=== PATIENT | female | born 1935 | race Two or more races ===

== ENCOUNTER 2017-06-02 16:17 | Inpatient (IN) | payer MEDICARE, OTHER ==
[~2017-06-02] VITALS: Ht 162.6 cm; Wt 79.8 kg
--- NOTE | 2017-06-02 19:00 | NUR ---
ADMITTED AN 81 YEAR OLD FEMALE PATIENT FROM [facility] REPORT GIVEN BY JAIME WHO WAS ACCOMPANIED BY 2 EMT STAFF ON A GURNEY VIA AMBULANCE WITH NO SOB, DISTRESS OR DISCOMFORTS WITH VITAL SIGNS OF BP: 123/59, MO: 75, TEMP: 98.5, OXYGEN SAT OF 96% ON ROOM AIR. PATIENT WAS ADMITTED FOR RIGHT CVA WITH HISTORY OF SYNCOPE, DM 2, HTN, LEFT SIDED WEAKNESS. PATIENT'S FAMILY MEMBERS AT BEDSIDE. ALL NEEDS WERE ATTENDED AND ANTICIPATED. CALL LIGHT PLACED WITHIN REACH. SWAB OF THE NARES WERE DONE, SENT TO LAB ORDERED. ENDORSED TO INCOMING SHIFT.
[2017-06-02] MEDS ORDERED: RAMI10CA PO (19:05)
[2017-06-02] MEDS ORDERED: GLIP-217 PO (19:05)
[2017-06-02] MEDS ORDERED: ACET-73 PO (19:05)
[2017-06-02] MEDS ORDERED: POTA10TA15 PO (19:05)
[2017-06-02] MEDS ORDERED: FURO20TA4 PO (19:05)
[2017-06-02] MEDS ORDERED: MELO-107 PO (19:05)
[2017-06-02] MEDS ORDERED: ERGO500014 PO (19:05)
[2017-06-02] MEDS ORDERED: INSU300I SQ (19:05)
[2017-06-02] MEDS ORDERED: ROSU20TA30 PO (19:05)
[2017-06-02] MEDS ORDERED: CLON0.1T PO (19:05)
[2017-06-02] MEDS ORDERED: ISOS30TA6 PO (19:05)
[2017-06-02] MEDS ORDERED: CARV6.252 PO (19:05)
[2017-06-02] MEDS ORDERED: CLON0.3P TD (19:05)
[2017-06-02] MEDS ORDERED: SITA100T PO (19:05)
[2017-06-02] MEDS ORDERED: ZOLP10TA6 PO (19:05)
[2017-06-02] MEDS ORDERED: SITA1TAB2 PO (19:05)
[2017-06-02] MEDS ORDERED: ASPI81TA31 PO (19:05)
[2017-06-02] MEDS ORDERED: CLOP75TA33 PO (19:05)
[2017-06-02] MEDS ORDERED: MECL-102 PO (19:05)
[2017-06-02] MEDS ORDERED: NIFE90TA38 PO (19:05)
[2017-06-02] MEDS ORDERED: MEMA10TA PO (19:05)
[2017-06-02] MEDS ORDERED: Z GUARD REMEDY PASTE 57 GM TUBE TOP PRN (19:15)
[2017-06-02] MEDS ORDERED: MELA3TAB PO (19:59)
--- NOTE | 2017-06-02 20:00 | NUR ---
Received patient laying in bed, awake, not in any form of acute distress. Vital signs taken and recorded. Denies any pain or discomfort. Safety measures provided. Call light placed within reach. Assisted to his needs.
--- NOTE | 2017-06-02 20:20 | NUR ---
Dr. Washburn made aware of patient's admission, will also do med. reconciliation.
[2017-06-02] MEDS ORDERED: CLONIDINE HCL 0.1 MG TABLET PO PRN (21:15)
[2017-06-02] MEDS ORDERED: DEXTROSE 50% 50 ML DISP.SYRIN IV PRN (21:15)
[2017-06-02] MEDS ORDERED: MECLIZINE HCL 25 MG TABLET PO PRN (21:15)
[2017-06-02 21:18] VITALS: BP 120/59
[2017-06-02] MEDS: BLOOD SUGAR DIAGNOSTIC 1 EACH STRIP VI SCH (21:53)
[2017-06-02] MEDS: INSULIN REGULAR, HUMAN 300 UNITS/3 ML VIAL SQ PRN (21:58)
[2017-06-02] MEDS ORDERED: INSULIN REGULAR, HUMAN 300 UNIT/3 ML VIAL ONE (22:10)
[2017-06-03] MEDS: BLOOD SUGAR DIAGNOSTIC 1 EACH STRIP VI SCH ×3 (06:53→21:38)
[2017-06-03 07:02] VITALS: BP 150/64
--- NOTE | 2017-06-03 07:05 | NUR ---
report received from Jessie, 81 yr old female who was admitted on 06/02 for rehab s/p cva with left sided weakness. Addendum: 06/03/17 at 0806 by DEANNE COTTON RN Amended: Links added.
--- NOTE | 2017-06-03 07:07 | NUR ---
patient stable through shift. no acute distress noted. all needs attended to. all meds administered as ordered per md. vital signs stable through shift. safety measures implemented. will endorse to day shift nurse.
[2017-06-03] MEDS: INSULIN REGULAR, HUMAN 300 UNIT/3 ML VIAL SQ PRN ×2 (07:57→16:29)
--- NOTE | 2017-06-03 08:02 | NUR ---
evaristo 189, covered with 3 units denise CHAVEZ Addendum: 06/03/17 at 0802 by DEANNE COTTON RN Amended: Links added.
[2017-06-03] MEDS ORDERED: Medication Not On Formulary EA (Potassium Chloride 8 MEQ) PO SCH (09:00)
[2017-06-03] MEDS ORDERED: MEMANTINE HCL 10 MG TABLET PO SCH (09:00)
[2017-06-03] MEDS ORDERED: Medication Not On Formulary EA (Meloxicam 15 MG) PO SCH (09:00)
[2017-06-03] MEDS: CLOPIDOGREL 75 MG TABLET PO SCH (09:23)
[2017-06-03] MEDS: FUROSEMIDE 20 MG TABLET PO SCH (09:23)
[2017-06-03] MEDS: MEMANTINE HCL 5 MG TABLET PO SCH ×2 (09:23→21:33)
[2017-06-03] MEDS: MELOXICAM 7.5 MG TABLET PO SCH (09:23)
[2017-06-03] MEDS: NIFEdipine XL 90 MG TABSR PO SCH (09:24)
[2017-06-03] MEDS: ACETAMINOPHEN ES 500 MG TABLET PO PRN (09:25)
[2017-06-03] MEDS: POTASSIUM CHLORIDE 8 MEQ CAPSULE.SA PO SCH (09:25)
[2017-06-03] MEDS: ISOSORBIDE MONONITRATE 30 MG TAB.SR.24H PO SCH (09:25)
[2017-06-03] MEDS: ASPIRIN 81 MG TAB.CHEW PO SCH (09:26)
[2017-06-03] MEDS: CARVEDILOL 6.25 MG TABLET PO SCH ×2 (09:27→17:08)
--- NOTE | 2017-06-03 09:31 | NUR ---
. exercised with PT. medicated for pain Addendum: 06/03/17 at 0931 by DEANNE COTTON RN Amended: Links added.
--- NOTE | 2017-06-03 11:00 | NUR ---
family at the bedside. condition report given Addendum: 06/03/17 at 1225 by DEANNE COTTON RN Amended: Links added.
[2017-06-03] MEDS: CLONIDINE-TTS 3 PATCH TD SCH (11:12)
--- NOTE | 2017-06-03 17:15 | NUR ---
daughter here and had questions re PT, OT and ST. battery charger, Leila and Ann Marie PT talked to patient and daughter . also daughter had questions re Medications. I explained to her all the medications daughter said do not give any pain pills and sleeping pills Addendum: 06/03/17 at 1715 by DEANNE COTTON RN Amended: Links added.
--- NOTE | 2017-06-03 18:02 | NUR ---
accucheck 226, covered with 6 units humulin R sq Addendum: 06/03/17 at 1802 by DEANNE COTTON RN Amended: Links added.
[2017-06-03 19:00] VITALS: BP 131/62
--- NOTE | 2017-06-03 19:18 | NUR ---
Report given to LQlilyquinoRN Addendum: 06/03/17 at 1918 by DEANNE COTTON RN Amended: Links added.
--- NOTE | 2017-06-03 19:40 | NUR ---
Received patient laying in bed, awake, alert and not in respiratory distress. Safety measures provided. Bed in low position, side rails up x3. Placed call light in reach. will monitor the patient.
[2017-06-03] MEDS: MELATONIN 3 MG TABLET PO SCH (21:00)
[2017-06-03] MEDS: ATORVASTATIN 40 MG TABLET PO SCH (21:33)
[2017-06-03] MEDS: INSULIN REGULAR, HUMAN 300 UNITS/3 ML VIAL SQ PRN (21:41)
[2017-06-04] MEDS: BLOOD SUGAR DIAGNOSTIC 1 EACH STRIP VI SCH ×4 (06:59→21:20)
[2017-06-04 07:10] VITALS: BP 148/62
[2017-06-04 08:44] LABS: BASOPHILS % (AUTO) 0.4 % (0.0-2.0); EOSINOPHILS # (AUTO) 0.1 K/uL (0.0-0.7); EOSINOPHILS % (AUTO) 2.3 % (0.0-7.0); HEMATOCRIT 34.8 % (31.2-41.9); HEMOGLOBIN 11.6 g/dL (10.9-14.3); LYMPHOCYTES % (AUTO) 15.1 % (20.5-51.5); MEAN CORPUSCULAR HGB CONC 33 g/dL (32.3-35.6); MEAN CORPUSCULAR VOLUME 86.9 fL (75.5-95.3); MONOCYTES # (AUTO) 0.4 K/uL (2.0-10.0); MONOCYTES % (AUTO) 6.8 % (0.0-11.0); NEUTROPHILS # (AUTO) 4.9 K/uL (1.8-8.9); NEUTROPHILS % (AUTO) 75.4 % (38.5-71.5); PLATELET COUNT (AUTO) 276 K/uL (179-408); RED BLOOD CELL COUNT(AUTO) 4.01 MIL/uL (3.63-4.92); WHITE BLOOD COUNT (AUTO) 6.5 K/uL (3.8-11.8)
[2017-06-04 08:59] LABS: THYROID STIMULATING HORMONE 1.567 mIU/mL (0.358-3.740)
[2017-06-04] MEDS: ISOSORBIDE MONONITRATE 30 MG TAB.SR.24H PO SCH (09:27)
[2017-06-04] MEDS: FUROSEMIDE 20 MG TABLET PO SCH (09:27)
[2017-06-04] MEDS: MEMANTINE HCL 5 MG TABLET PO SCH ×2 (09:27→21:18)
[2017-06-04] MEDS: MELOXICAM 7.5 MG TABLET PO SCH (09:27)
[2017-06-04] MEDS: ASPIRIN 81 MG TAB.CHEW PO SCH (09:27)
[2017-06-04] MEDS: NIFEdipine XL 90 MG TABSR PO SCH (09:28)
[2017-06-04] MEDS: POTASSIUM CHLORIDE 8 MEQ CAPSULE.SA PO SCH (09:28)
[2017-06-04] MEDS: CARVEDILOL 6.25 MG TABLET PO SCH ×2 (09:28→17:26)
[2017-06-04] MEDS: CLOPIDOGREL 75 MG TABLET PO SCH (09:28)
[2017-06-04 09:30] LABS: ALANINE AMINOTRANSFERASE 28 U/L (14-59); ALKALINE PHOSPHATASE 66 U/L (50-136); ASPARTATE AMINOTRANSFERASE 30 U/L (15-37); BILIRUBIN,TOTAL 0.3 mg/dL (0.2-1.0); CARBON DIOXIDE 25 mmol/L (21-32); CHLORIDE 109 mmol/L (98-107); CHOLESTEROL 154 mg/dL (<200); CREATININE 1.7 mg/dL (0.6-1.3); GLUCOSE 232 mg/dL (74-106); HDL CHOLESTEROL 46 mg/dL (40-60); MAGNESIUM 2.1 mg/dL (1.8-2.4); PHOSPHOROUS 4.5 mg/dL (2.5-4.9); POTASSIUM 4.7 mmol/L (3.5-5.1); TOTAL PROTEIN, SERUM 6.4 g/dL (6.4-8.2); TRIGLYCERIDES 111 MG/DL (30-150); UREA NITROGEN, BLOOD 35 mg/dL (7-18)
[2017-06-04] MEDS: INSULIN REGULAR, HUMAN 300 UNIT/3 ML VIAL SQ PRN ×2 (11:56→17:24)
--- NOTE | 2017-06-04 19:40 | NUR ---
Patient laying in bed, awake, not in any form of acute distress. Vital signs taken and recorded. No s/s of any acute respiratory distress. Denies any pain or discomfort. Safety measures provided. Call light placed within reach. Will monitor the patient.
[2017-06-04 20:00] VITALS: BP 125/62
[2017-06-04] MEDS: MELATONIN 3 MG TABLET PO SCH (21:00)
[2017-06-04] MEDS: ATORVASTATIN 40 MG TABLET PO SCH (21:18)
[2017-06-04] MEDS: INSULIN REGULAR, HUMAN 300 UNITS/3 ML VIAL SQ PRN (21:25)
[2017-06-05] MEDS: BLOOD SUGAR DIAGNOSTIC 1 EACH STRIP VI SCH ×4 (06:54→20:56)
[2017-06-05 07:30] VITALS: BP 144/67
[2017-06-05 08:08] LABS: CARBON DIOXIDE 25 mmol/L (21-32); CHLORIDE 104 mmol/L (98-107); CREATININE 1.7 mg/dL (0.6-1.3); GLUCOSE 240 mg/dL (74-106); MAGNESIUM 1.9 mg/dL (1.8-2.4); PHOSPHOROUS 4.8 mg/dL (2.5-4.9); POTASSIUM 4.4 mmol/L (3.5-5.1); UREA NITROGEN, BLOOD 38 mg/dL (7-18)
[2017-06-05] MEDS: ASPIRIN 81 MG TAB.CHEW PO SCH (08:27)
[2017-06-05] MEDS: MEMANTINE HCL 5 MG TABLET PO SCH ×2 (08:27→20:46)
[2017-06-05] MEDS: POTASSIUM CHLORIDE 8 MEQ CAPSULE.SA PO SCH (08:30)
[2017-06-05] MEDS: CLOPIDOGREL 75 MG TABLET PO SCH (08:31)
[2017-06-05] MEDS: NIFEdipine XL 90 MG TABSR PO SCH (08:31)
[2017-06-05] MEDS: MELOXICAM 7.5 MG TABLET PO SCH (08:32)
[2017-06-05] MEDS: CARVEDILOL 6.25 MG TABLET PO SCH ×2 (08:33→18:00)
[2017-06-05] MEDS: FUROSEMIDE 20 MG TABLET PO SCH (08:44)
[2017-06-05] MEDS: ISOSORBIDE MONONITRATE 30 MG TAB.SR.24H PO SCH (08:45)
[2017-06-05] MEDS: CYANOCOBALAMIN 1000 MCG/ML VIAL IM SCH (08:45)
[2017-06-05 09:13] LABS: BASOPHILS % (AUTO) 0.3 % (0.0-2.0); EOSINOPHILS # (AUTO) 0.2 K/uL (0.0-0.7); EOSINOPHILS % (AUTO) 2.1 % (0.0-7.0); HEMATOCRIT 34.9 % (31.2-41.9); HEMOGLOBIN 11.7 g/dL (10.9-14.3); LYMPHOCYTES # (AUTO) 0.8 K/uL (20.0-40.0); LYMPHOCYTES % (AUTO) 9.9 % (20.5-51.5); MEAN CORPUSCULAR HEMOGLOBIN 29.1 uug (24.7-32.8); MEAN CORPUSCULAR HGB CONC 34 g/dL (32.3-35.6); MEAN CORPUSCULAR VOLUME 86.7 fL (75.5-95.3); MONOCYTES # (AUTO) 0.5 K/uL (2.0-10.0); MONOCYTES % (AUTO) 6.4 % (0.0-11.0); NEUTROPHILS # (AUTO) 6.9 K/uL (1.8-8.9); NEUTROPHILS % (AUTO) 81.3 % (38.5-71.5); PLATELET COUNT (AUTO) 264 K/uL (179-408); RED BLOOD CELL COUNT(AUTO) 4.02 MIL/uL (3.63-4.92)
[2017-06-05 09:14] LABS: WHITE BLOOD COUNT (AUTO) 8.5 K/uL (3.8-11.8)
[2017-06-05] MEDS: INSULIN REGULAR, HUMAN 300 UNIT/3 ML VIAL SQ PRN ×3 (12:09→20:55)
--- NOTE | 2017-06-05 12:31 | NUR ---
SBAR report received from shift mgr RN. Board updated. Pt assessed, awake, alert, and oriented. No c/o pain or discomfort. Pt compliant with all routine morning medications, taking pills whole. Bed in locked and lowest position with side rails up x2. All safety and comfort measures met. Pt complied with all scheduled therapies. Pt sitting up in chair for lunch with daughter at bedside currently. Pt reminded to utilize call light for any assistance needed. Personal items and call light within reach. Will continue to monitor.
--- NOTE | 2017-06-05 19:02 | NUR ---
Pt seen by MD, no new orders. Pt sitting comfortably with daughter at bedside. Held Coreg r/t decreased BP of 110/53. No c/o pain. Pt repositioned for comfort, clean and dry. Call light within reach. Will endorse to oncoming date night caregiver.
--- NOTE | 2017-06-05 19:30 | NUR ---
Patient received from day shift nurse. shift report given at bedside. patient is a/o x2-3 with no signs of pain, sob, or acute distress. vital signs stable at beginning of shift. pertinent assessment completed. bed in low position x2 side rails up. call light placed within reach of pt. will continue to monitor pt through shift.
[2017-06-05 20:25] VITALS: BP 129/51
[2017-06-05] MEDS: ATORVASTATIN 40 MG TABLET PO SCH (20:46)
--- NOTE | 2017-06-05 20:55 | NUR ---
Blood sugar checked at 217. administered 6 units of insulin per MD order & sliding scale. will continue to monitor pt through shift.
[2017-06-05] MEDS: MELATONIN 3 MG TABLET PO SCH (21:00)
--- NOTE | 2017-06-06 05:43 | NUR ---
patient slept well through the shift. no signs of pain, sob, or acute distress noted. vital signs stable through shift. patient used nectar-thick liquids for drinking. no s/s of aspiration. was able to make meds whole. diaper changed per soiling. all needs attended to. all meds administered as ordered. safety measures implemented. bed in low position x2 side rails up. call light within reach of pt. will endorse to day shift nurse.
[2017-06-06] MEDS: BLOOD SUGAR DIAGNOSTIC 1 EACH STRIP VI SCH ×4 (06:30→21:07)
[2017-06-06] MEDS: INSULIN REGULAR, HUMAN 300 UNIT/3 ML VIAL SQ PRN ×4 (06:31→21:07)
[2017-06-06 07:30] VITALS: BP 136/60
[2017-06-06] MEDS: MELOXICAM 7.5 MG TABLET PO SCH (08:23)
[2017-06-06] MEDS: NIFEdipine XL 90 MG TABSR PO SCH (08:24)
[2017-06-06] MEDS: CLOPIDOGREL 75 MG TABLET PO SCH (08:25)
[2017-06-06] MEDS: FUROSEMIDE 20 MG TABLET PO SCH (08:25)
[2017-06-06] MEDS: ASPIRIN 81 MG TAB.CHEW PO SCH (08:25)
[2017-06-06] MEDS: POTASSIUM CHLORIDE 8 MEQ CAPSULE.SA PO SCH (08:25)
[2017-06-06] MEDS: ISOSORBIDE MONONITRATE 30 MG TAB.SR.24H PO SCH (08:25)
[2017-06-06] MEDS: MEMANTINE HCL 5 MG TABLET PO SCH ×2 (08:25→20:57)
[2017-06-06] MEDS: CARVEDILOL 6.25 MG TABLET PO SCH ×2 (08:26→18:00)
[2017-06-06] MEDS: CYANOCOBALAMIN 1000 MCG/ML VIAL IM SCH (08:31)
--- NOTE | 2017-06-06 13:53 | NUR ---
INTERDISCIPLINARY TEAM CONFERENCE
--- NOTE | 2017-06-06 13:54 | NUR ---
SBAR report received, board updated. Pt awake and alert. Pt assessed, no c/o pain and no distress observed. Pt assisted with toileting, BM x1. Pt compliant with all routine morning medication administration, taking pills whole, with netar-thickened liquids. Pt BS 255, 9 units administered per sliding scale orders. Pt daughter visiting at bedside. Bed in locked and lowest position, with side rails up x2. Personal items and call light placed within reach. Will continue to monitor.
--- NOTE | 2017-06-06 15:53 | NUR ---
Pt daughter visiting at bedside expressed her concern for her mother "sleeping so soundly" during the afternoon. Pt had difficulty sleping last night and no therapy this shift. V/S assessed to be 124/64, 76, 98.1 temp., 97% O2 resting in semi-fowlers position. Blood sugars also checked to be 204. Pt is asymptomatic, reports no distress, dizziness, and/or pain. Pt reports feeling find just tired. Will continue to monitor and evaluate blood sugars again prior to dinner. notified and made aware.
--- NOTE | 2017-06-06 18:06 | NUR ---
Pt seen by Md, no new orders.Pt sitting comfortably in semi-fowlers position, with bed locked, low, and with side raisl up x2. 3 extended family members visiting at bedside currently. Pt compliant with switching to room 109, and assisted with relocating belongings. V/S 117/43, 70, Coreg held at this time. Call light and personal items within reach. Pt clean, dry, comfortably, and safety needs met. Will continue to monitor and endorse to on coming welder 2nd shift.
--- NOTE | 2017-06-06 19:30 | NUR ---
Received patient from day shift nurse. patient lying comfortably at start of shift with no signs of pain, sob, or acute distress. family at bedside at start of shift. pertinent assessment completed. vital signs stable at start of shift. bed in low position x2 side rails up. call light within reach of pt. will continue to monitor pt through shift.
[2017-06-06 20:31] VITALS: BP 130/63
[2017-06-06] MEDS: ATORVASTATIN 40 MG TABLET PO SCH (20:57)
[2017-06-06] MEDS: MELATONIN 3 MG TABLET PO SCH (21:00)
[2017-06-06] MEDS: ACETAMINOPHEN ES 500 MG TABLET PO PRN (23:34)
--- NOTE | 2017-06-07 05:39 | NUR ---
Patient slept intermittently through shift. patient noted having difficulty sleeping during the night. no sleeping meds administered per family & patient request. vitals stable through shift. all needs attended to. all meds administered as ordered per md. safety measures implemented. call light within reach of pt. will endorse to day shift nurse.
[2017-06-07] MEDS: BLOOD SUGAR DIAGNOSTIC 1 EACH STRIP VI SCH ×4 (06:30→21:15)
[2017-06-07 07:30] VITALS: BP 138/69
--- NOTE | 2017-06-07 07:35 | NUR ---
PATIENT NOTED USING THE RESTROOM AT THIS TIME, NO COMPLAINTS OF PAIN AT THIS TIME , NO SIGNS OF DISTRESS NOTED, CALL LIGHT IN REACH, BED LOCKED AND IN LOWEST POSITION
[2017-06-07] MEDS: INSULIN REGULAR, HUMAN 300 UNIT/3 ML VIAL SQ PRN ×3 (08:00→17:25)
[2017-06-07] MEDS: NIFEdipine XL 90 MG TABSR PO SCH (08:31)
[2017-06-07] MEDS: MELOXICAM 7.5 MG TABLET PO SCH (08:31)
[2017-06-07] MEDS: FUROSEMIDE 20 MG TABLET PO SCH (08:32)
[2017-06-07] MEDS: ASPIRIN 81 MG TAB.CHEW PO SCH (08:32)
[2017-06-07] MEDS: MEMANTINE HCL 5 MG TABLET PO SCH ×2 (08:32→21:11)
[2017-06-07] MEDS: CLOPIDOGREL 75 MG TABLET PO SCH (08:32)
[2017-06-07] MEDS: CARVEDILOL 6.25 MG TABLET PO SCH ×2 (08:32→17:30)
[2017-06-07] MEDS: POTASSIUM CHLORIDE 8 MEQ CAPSULE.SA PO SCH (08:32)
[2017-06-07] MEDS: ISOSORBIDE MONONITRATE 30 MG TAB.SR.24H PO SCH (08:33)
[2017-06-07] MEDS: CYANOCOBALAMIN 1000 MCG/ML VIAL IM SCH (08:33)
--- NOTE | 2017-06-07 19:30 | NUR ---
Received patient from day shift nurse. patient lying comfortably in bed, Awake & alert X3 with no signs of pain, sob, or acute distress. Family currently at bedside. Vital signs taken at start of shift & stable. Pertinent assessment completed. Patient on nectar thick liquids. Bed in low position x2 side rails up. Bed in the locked position. Call light within reach of pt. Will continue to monitor pt through shift.
[2017-06-07 20:20] VITALS: BP 120/50
[2017-06-07] MEDS: MELATONIN 3 MG TABLET PO SCH (21:00)
[2017-06-07] MEDS ORDERED: INSULIN DETEMIR 300 UNIT/3 ML CARTRIDGE SQ SCH (21:00)
[2017-06-07] MEDS: ATORVASTATIN 40 MG TABLET PO SCH (21:11)
[2017-06-07] MEDS: INSULIN GLARGINE,HUM 300 UNITS/3 ML CARTRIDGE SQ SCH (21:12)
--- NOTE | 2017-06-08 05:45 | NUR ---
Patient was able to sleep through the night. No sleeplessness noted this shift. All meds administered as ordered. all needs attended to. safety measures implemented. Vital signs remained stable. call light within reach of pt. will endorse to day shift nurse.
[2017-06-08] MEDS: BLOOD SUGAR DIAGNOSTIC 1 EACH STRIP VI SCH ×4 (06:32→20:48)
[2017-06-08] MEDS: glipiZIDE 5 MG TABLET PO SCH ×2 (06:32→16:45)
[2017-06-08 08:00] LABS: CARBON DIOXIDE 24 mmol/L (21-32); CHLORIDE 108 mmol/L (98-107); CREATININE 1.5 mg/dL (0.6-1.3); GLUCOSE 158 mg/dL (74-106); MAGNESIUM 1.9 mg/dL (1.8-2.4); PHOSPHOROUS 5.3 mg/dL (2.5-4.9); UREA NITROGEN, BLOOD 41 mg/dL (7-18)
[2017-06-08 08:03] LABS: BASOPHILS % (AUTO) 0.3 % (0.0-2.0); EOSINOPHILS # (AUTO) 0.2 K/uL (0.0-0.7); EOSINOPHILS % (AUTO) 2.7 % (0.0-7.0); HEMATOCRIT 32.3 % (31.2-41.9); HEMOGLOBIN 10.9 g/dL (10.9-14.3); LYMPHOCYTES # (AUTO) 1.2 K/uL (20.0-40.0); LYMPHOCYTES % (AUTO) 17.2 % (20.5-51.5); MEAN CORPUSCULAR HEMOGLOBIN 29.1 uug (24.7-32.8); MEAN CORPUSCULAR HGB CONC 34 g/dL (32.3-35.6); MEAN CORPUSCULAR VOLUME 86.1 fL (75.5-95.3); MONOCYTES # (AUTO) 0.5 K/uL (2.0-10.0); NEUTROPHILS % (AUTO) 72.8 % (38.5-71.5); PLATELET COUNT (AUTO) 238 K/uL (179-408); RED BLOOD CELL COUNT(AUTO) 3.75 MIL/uL (3.63-4.92); WHITE BLOOD COUNT (AUTO) 6.8 K/uL (3.8-11.8)
[2017-06-08 08:39] VITALS: BP 148/63
[2017-06-08] MEDS: ASPIRIN 81 MG TAB.CHEW PO SCH (09:27)
[2017-06-08] MEDS: CARVEDILOL 6.25 MG TABLET PO SCH ×2 (09:27→17:17)
[2017-06-08] MEDS: MEMANTINE HCL 5 MG TABLET PO SCH ×2 (09:27→20:48)
[2017-06-08] MEDS: FUROSEMIDE 20 MG TABLET PO SCH (09:27)
[2017-06-08] MEDS: POTASSIUM CHLORIDE 8 MEQ CAPSULE.SA PO SCH (09:28)
[2017-06-08] MEDS: CLOPIDOGREL 75 MG TABLET PO SCH (09:28)
[2017-06-08] MEDS: MELOXICAM 7.5 MG TABLET PO SCH (09:29)
[2017-06-08] MEDS: SITAGLIPTIN PHOSPHATE 50 MG TABLET PO SCH (09:29)
[2017-06-08] MEDS: NIFEdipine XL 90 MG TABSR PO SCH (09:30)
[2017-06-08] MEDS: CYANOCOBALAMIN 1000 MCG/ML VIAL IM SCH (09:30)
[2017-06-08] MEDS: ISOSORBIDE MONONITRATE 30 MG TAB.SR.24H PO SCH (09:45)
--- NOTE | 2017-06-08 19:35 | NUR ---
Patient received from day shift nurse. Patient seated on her wheelchair watching TV,family at bedside. During rounds noted with no signs of pain, sob, or acute distress. Pertinent assessment completed. Vital signs taken at start of shift & stable. Call light within reach of pt. will continue to monitor pt through shift
[2017-06-08] MEDS: ATORVASTATIN 40 MG TABLET PO SCH (20:48)
[2017-06-08 20:50] VITALS: BP 133/61
[2017-06-08] MEDS: INSULIN REGULAR, HUMAN 300 UNITS/3 ML VIAL SQ PRN (20:50)
[2017-06-08] MEDS: INSULIN GLARGINE,HUM 300 UNITS/3 ML CARTRIDGE SQ SCH (20:53)
[2017-06-08] MEDS: MELATONIN 3 MG TABLET PO SCH (21:00)
[2017-06-09] MEDS: BLOOD SUGAR DIAGNOSTIC 1 EACH STRIP VI SCH ×4 (06:57→20:46)
[2017-06-09] MEDS: glipiZIDE 5 MG TABLET PO SCH ×2 (06:58→16:45)
[2017-06-09 07:45] VITALS: BP 109/47
[2017-06-09 08:00] VITALS: BP 130/56
[2017-06-09] MEDS: FUROSEMIDE 20 MG TABLET PO SCH (08:14)
[2017-06-09] MEDS: CYANOCOBALAMIN 1000 MCG/ML VIAL IM SCH (08:14)
[2017-06-09] MEDS: CARVEDILOL 6.25 MG TABLET PO SCH ×2 (08:14→17:59)
[2017-06-09] MEDS: MEMANTINE HCL 5 MG TABLET PO SCH ×2 (08:15→20:46)
[2017-06-09] MEDS: ISOSORBIDE MONONITRATE 30 MG TAB.SR.24H PO SCH (08:15)
[2017-06-09] MEDS: POTASSIUM CHLORIDE 8 MEQ CAPSULE.SA PO SCH (08:15)
[2017-06-09] MEDS: CLOPIDOGREL 75 MG TABLET PO SCH (08:15)
[2017-06-09] MEDS: NIFEdipine XL 90 MG TABSR PO SCH (08:15)
[2017-06-09] MEDS: SITAGLIPTIN PHOSPHATE 50 MG TABLET PO SCH (08:15)
[2017-06-09] MEDS: ASPIRIN 81 MG TAB.CHEW PO SCH (08:15)
[2017-06-09] MEDS: INSULIN REGULAR, HUMAN 300 UNIT/3 ML VIAL SQ PRN (11:40)
--- NOTE | 2017-06-09 18:49 | NUR ---
Pt resting comfortably in semi-fowlers. Pt clean, dry, and able to make all needs known. BS 73 prior to dinner, no coverage needed. All comfort and safety measures met. Call light and personal belongings within reach. Will continue to monitor and endorse to overnight babysitter.
--- NOTE | 2017-06-09 19:45 | NUR ---
Received patient laying in bed, awake, alert with daughter at bedside. shift report done at bedside. Vital signs taken and recorded, with no signs of sob, or acute distress. Denies of pain. Pertinent assessment completed. Safety measures provided, bed in low position x2 side rails up. call light placed within reach of pt. will continue to monitor pt through shift.
[2017-06-09] MEDS: ATORVASTATIN 40 MG TABLET PO SCH (20:46)
[2017-06-09] MEDS: INSULIN GLARGINE,HUM 300 UNITS/3 ML CARTRIDGE SQ SCH (20:51)
[2017-06-09] MEDS: INSULIN REGULAR, HUMAN 300 UNITS/3 ML VIAL SQ PRN (20:52)
[2017-06-09] MEDS: MELATONIN 3 MG TABLET PO SCH (20:59)
[2017-06-10] MEDS: ACETAMINOPHEN ES 500 MG TABLET PO PRN (02:54)
[2017-06-10] MEDS: BLOOD SUGAR DIAGNOSTIC 1 EACH STRIP VI SCH ×4 (06:14→20:46)
--- NOTE | 2017-06-10 06:33 | NUR ---
Pt. slept intermittently throughout the shift. Tylenol 500 mg given, able to sleep 3 hrs after PO given. Will endorse to AM shift.
--- NOTE | 2017-06-10 06:46 | NUR ---
Blood Sugar taken, 65 mg/dL. Apple juice given, rechecked afte 30 mins. went up to 98mg/dL. will endorse to AM shift nurse.
[2017-06-10] MEDS: glipiZIDE 5 MG TABLET PO SCH ×2 (07:02→17:10)
[2017-06-10 07:30] VITALS: BP 126/55
[2017-06-10] MEDS: FUROSEMIDE 20 MG TABLET PO SCH (09:04)
[2017-06-10] MEDS: CYANOCOBALAMIN 1000 MCG/ML VIAL IM SCH (09:04)
[2017-06-10] MEDS: MEMANTINE HCL 5 MG TABLET PO SCH ×2 (09:04→20:43)
[2017-06-10] MEDS: ASPIRIN 81 MG TAB.CHEW PO SCH (09:04)
[2017-06-10] MEDS: POTASSIUM CHLORIDE 8 MEQ CAPSULE.SA PO SCH (09:04)
[2017-06-10] MEDS: CLOPIDOGREL 75 MG TABLET PO SCH (09:04)
[2017-06-10] MEDS: CARVEDILOL 6.25 MG TABLET PO SCH ×2 (09:05→17:22)
[2017-06-10] MEDS: NIFEdipine XL 90 MG TABSR PO SCH (09:05)
[2017-06-10] MEDS: ISOSORBIDE MONONITRATE 30 MG TAB.SR.24H PO SCH (09:06)
[2017-06-10] MEDS: SITAGLIPTIN PHOSPHATE 50 MG TABLET PO SCH (09:08)
[2017-06-10] MEDS: CLONIDINE-TTS 3 PATCH TD SCH (09:09)
--- NOTE | 2017-06-10 10:35 | NUR ---
I agree Addendum: 06/10/17 at 1035 by ARNOLD WEEKS OT Amended: Links added.
--- NOTE | 2017-06-10 10:36 | NUR ---
I agree Addendum: 06/10/17 at 1036 by ARNOLD WEEKS OT Amended: Links added.
[2017-06-10] MEDS: INSULIN REGULAR, HUMAN 300 UNIT/3 ML VIAL SQ PRN (17:13)
--- NOTE | 2017-06-10 19:30 | NUR ---
Patient received from day shift nurse. Report at bedside. Patient's daughter currently at bedside. A/O x3, Spanish speaking, with no signs of pain, sob, or acute distress. Vitals signs WNL. Pertinent assessment completed. On Argenta-thick liquids. Bed locked, in low position, x2 side rails up. Call light within reach of patient. Will continue to monitor patient through shift.
[2017-06-10 20:25] VITALS: BP 112/50
[2017-06-10] MEDS: ATORVASTATIN 40 MG TABLET PO SCH (20:43)
[2017-06-10] MEDS: MELATONIN 3 MG TABLET PO SCH (20:50)
[2017-06-10] MEDS: INSULIN GLARGINE,HUM 300 UNITS/3 ML CARTRIDGE SQ SCH (20:54)
[2017-06-11] MEDS: BLOOD SUGAR DIAGNOSTIC 1 EACH STRIP VI SCH ×4 (06:34→21:14)
--- NOTE | 2017-06-11 06:51 | NUR ---
Blood sugar checked this AM at 105. No insulin coverage needed. Patient stable through the shift. Slept well during the night with no signs of pain, sob, or acute distress. Vital signs WNL. All needs attended to. Patient turned and reposition q 2 hours. All meds administered as ordered per MD. Call light within reach of patient. Will endorse to day shift nurse.
[2017-06-11] MEDS: CARVEDILOL 6.25 MG TABLET PO SCH ×2 (08:26→16:56)
[2017-06-11] MEDS: CYANOCOBALAMIN 1000 MCG/ML VIAL IM SCH (08:26)
[2017-06-11] MEDS: POTASSIUM CHLORIDE 8 MEQ CAPSULE.SA PO SCH (08:26)
[2017-06-11] MEDS: FUROSEMIDE 20 MG TABLET PO SCH (08:26)
[2017-06-11] MEDS: CLOPIDOGREL 75 MG TABLET PO SCH (08:26)
[2017-06-11] MEDS: ISOSORBIDE MONONITRATE 30 MG TAB.SR.24H PO SCH (08:27)
[2017-06-11] MEDS: SITAGLIPTIN PHOSPHATE 50 MG TABLET PO SCH (08:27)
[2017-06-11] MEDS: ASPIRIN 81 MG TAB.CHEW PO SCH (08:27)
[2017-06-11] MEDS: MEMANTINE HCL 5 MG TABLET PO SCH ×2 (08:28→21:11)
[2017-06-11] MEDS: NIFEdipine XL 90 MG TABSR PO SCH (08:28)
[2017-06-11 08:30] VITALS: BP 128/61
[2017-06-11] MEDS: glipiZIDE 5 MG TABLET PO SCH ×2 (08:31→16:49)
--- NOTE | 2017-06-11 19:50 | NUR ---
Received pt in bed, awake and alert with family member at bedside. No acute distress noted. Denies pain or discomfort. All safety measures and fall precautions maintained. Call light and all personal belongings within reach. Will continue to monitor.
[2017-06-11 19:56] VITALS: BP 148/68
[2017-06-11] MEDS: MELATONIN 3 MG TABLET PO SCH (21:11)
[2017-06-11] MEDS: ATORVASTATIN 40 MG TABLET PO SCH (21:11)
[2017-06-11] MEDS: INSULIN GLARGINE,HUM 300 UNITS/3 ML CARTRIDGE SQ SCH (21:16)
[2017-06-11] MEDS: INSULIN REGULAR, HUMAN 300 UNITS/3 ML VIAL SQ PRN (21:18)
--- NOTE | 2017-06-12 06:10 | NUR ---
Pt slept comfortably throughout shift. No acute distress noted. Verbally responsive and able to make needs known. Denies pain or discomfort. All needs anticipated and met accordingly. Kept clean and dry for comfort. All due medications given as ordered per MD and tolerated well. Call light and all personal belongings within reach. All safety measures and fall precautions maintained. Will continue to monitor. Will endorse to day shift.
[2017-06-12] MEDS: glipiZIDE 5 MG TABLET PO SCH ×2 (06:55→16:34)
[2017-06-12] MEDS: BLOOD SUGAR DIAGNOSTIC 1 EACH STRIP VI SCH ×4 (06:56→20:54)
--- NOTE | 2017-06-12 07:45 | NUR ---
Patient noted resting in bed with eyes closed, no complaints of pain, no sings of distress noted, call light in reach, bed locked and in lowest position, all needs met at this time
[2017-06-12] MEDS: NIFEdipine XL 90 MG TABSR PO SCH (09:40)
[2017-06-12] MEDS: ASPIRIN 81 MG TAB.CHEW PO SCH (09:40)
[2017-06-12] MEDS: CLOPIDOGREL 75 MG TABLET PO SCH (09:40)
[2017-06-12] MEDS: MEMANTINE HCL 5 MG TABLET PO SCH ×2 (09:40→20:54)
[2017-06-12] MEDS: POTASSIUM CHLORIDE 8 MEQ CAPSULE.SA PO SCH (09:40)
[2017-06-12] MEDS: SITAGLIPTIN PHOSPHATE 50 MG TABLET PO SCH (09:41)
[2017-06-12] MEDS: ACETAMINOPHEN ES 500 MG TABLET PO PRN (09:41)
[2017-06-12] MEDS: FUROSEMIDE 20 MG TABLET PO SCH (09:41)
[2017-06-12] MEDS: CARVEDILOL 6.25 MG TABLET PO SCH ×2 (09:41→17:11)
[2017-06-12] MEDS: ISOSORBIDE MONONITRATE 30 MG TAB.SR.24H PO SCH (09:41)
[2017-06-12 11:38] VITALS: BP 144/55
[2017-06-12] MEDS: INSULIN REGULAR, HUMAN 300 UNIT/3 ML VIAL SQ PRN ×2 (12:10→17:07)
[2017-06-12] MEDS ORDERED: INSULIN REGULAR, HUMAN 300 UNIT/3 ML VIAL SQ PRN (15:45)
[2017-06-12] MEDS ORDERED: DEXTROSE 50% 50 ML DISP.SYRIN IV PRN (15:45)
[2017-06-12] MEDS ORDERED: INSULIN REGULAR, HUMAN 300 UNITS/3 ML VIAL SQ PRN ×2 (15:45→16:30)
--- NOTE | 2017-06-12 19:45 | NUR ---
Received pt in bed, AAO x 3 with family at bedside. No acute distress noted. Verbally responsive and able to make needs known. Denies pain or discomfort at this time. All safety measures and fall precautions maintained. Call light and all personal belongings within reach. Will continue to monitor.
[2017-06-12 20:27] VITALS: BP 124/85
[2017-06-12] MEDS: ATORVASTATIN 40 MG TABLET PO SCH (20:54)
[2017-06-12] MEDS: INSULIN GLARGINE,HUM 300 UNITS/3 ML CARTRIDGE SQ SCH (20:58)
[2017-06-12] MEDS: MELATONIN 3 MG TABLET PO SCH (20:58)
[2017-06-12] MEDS: INSULIN REGULAR, HUMAN 300 UNITS/3 ML VIAL SQ PRN (20:58)
--- NOTE | 2017-06-13 06:35 | NUR ---
Pt slept intermittently throughout the night. No acute distress. No complaints of pain or discomfort. Kept clean and dry. Repositioned for comfort. All due medications given and well tolerated. All safety measures and fall precautions maintained. Call light and all personal belongings within reach. Will endorse to AM shift. Will continue to monitor. Addendum: 06/13/17 at 0639 by Bernabe Lama RN AM blood sugar noted to be 77. No acute distress noted. Safety maintained. Will endorse to AM shift.
[2017-06-13] MEDS: BLOOD SUGAR DIAGNOSTIC 1 EACH STRIP VI SCH ×4 (06:39→20:59)
[2017-06-13] MEDS: glipiZIDE 5 MG TABLET PO SCH ×2 (06:39→17:22)
[2017-06-13 07:49] LABS: CARBON DIOXIDE 26 mmol/L (21-32); CHLORIDE 107 mmol/L (98-107); CREATININE 1.6 mg/dL (0.6-1.3); GLUCOSE 70 mg/dL (74-106); POTASSIUM 4.3 mmol/L (3.5-5.1); UREA NITROGEN, BLOOD 25 mg/dL (7-18)
[2017-06-13 09:01] VITALS: BP 119/53
[2017-06-13] MEDS: NIFEdipine XL 90 MG TABSR PO SCH (09:26)
[2017-06-13] MEDS: FUROSEMIDE 20 MG TABLET PO SCH (09:26)
[2017-06-13] MEDS: POTASSIUM CHLORIDE 8 MEQ CAPSULE.SA PO SCH (09:26)
[2017-06-13] MEDS: MEMANTINE HCL 5 MG TABLET PO SCH ×2 (09:26→20:59)
[2017-06-13] MEDS: CLOPIDOGREL 75 MG TABLET PO SCH (09:26)
[2017-06-13] MEDS: ASPIRIN 81 MG TAB.CHEW PO SCH (09:26)
[2017-06-13] MEDS: SITAGLIPTIN PHOSPHATE 50 MG TABLET PO SCH (09:27)
[2017-06-13] MEDS: CARVEDILOL 6.25 MG TABLET PO SCH ×2 (09:27→17:17)
[2017-06-13] MEDS: ISOSORBIDE MONONITRATE 30 MG TAB.SR.24H PO SCH (09:27)
[2017-06-13] MEDS: INSULIN REGULAR, HUMAN 300 UNIT/3 ML VIAL SQ PRN (09:28)
--- NOTE | 2017-06-13 09:40 | NUR ---
pt seen on rounding. pt continues to be stable. left side weakness noted. no changes on nih scale. pt continues to swallow pills whole without aspiration. fluid thickener applied. bp stable. tolerates room air. afebrile. will continue to monitor.
--- NOTE | 2017-06-13 13:50 | NUR ---
INTERDISCIPLINARY TEAM CONFERENCE
--- NOTE | 2017-06-13 18:35 | NUR ---
pt stable throughout the day. pt had high bp and given bp meds to manage. no new injuries. no changes on NIH scale. pt had a bm and voided. will endorse to restaurant shift leader nurse.
--- NOTE | 2017-06-13 19:30 | NUR ---
Pt resting comfortably in bed. Family at bedside. No acute distress noted. No c/o pain or discomfort. Left sided weakness. Safety measures maintained. Bed alarm on. Call light and personal belongings within reach. Will continue to monitor.
[2017-06-13 20:34] VITALS: BP 117/43
[2017-06-13] MEDS: INSULIN GLARGINE,HUM 300 UNITS/3 ML CARTRIDGE SQ SCH (20:55)
[2017-06-13] MEDS: INSULIN REGULAR, HUMAN 300 UNITS/3 ML VIAL SQ PRN (20:55)
[2017-06-13] MEDS: MELATONIN 3 MG TABLET PO SCH (20:59)
[2017-06-13] MEDS: ATORVASTATIN 40 MG TABLET PO SCH (20:59)
--- NOTE | 2017-06-14 05:37 | NUR ---
Pt slept comfortably t/o the night. Assisted to the bathroom as needed. Meds and insulin coverage given as ordered. All needs attended to promptly. Will endorse to day shift RN. Continue to monitor.
[2017-06-14] MEDS: BLOOD SUGAR DIAGNOSTIC 1 EACH STRIP VI SCH ×4 (07:23→21:10)
--- NOTE | 2017-06-14 07:30 | NUR ---
Received pt in bed, AAO x 3 . No acute distress noted. Verbally responsive and able to make needs known. Denies pain or discomfort at this time. All safety measures maintained. Call light within reach. Will continue to monitor.
[2017-06-14] MEDS: glipiZIDE 5 MG TABLET PO SCH ×2 (07:36→17:19)
[2017-06-14] MEDS: CARVEDILOL 6.25 MG TABLET PO SCH ×2 (07:36→17:23)
[2017-06-14] MEDS: POTASSIUM CHLORIDE 8 MEQ CAPSULE.SA PO SCH (08:03)
[2017-06-14] MEDS: MEMANTINE HCL 5 MG TABLET PO SCH ×2 (08:03→21:06)
[2017-06-14] MEDS: NIFEdipine XL 90 MG TABSR PO SCH (08:03)
[2017-06-14] MEDS: ISOSORBIDE MONONITRATE 30 MG TAB.SR.24H PO SCH (08:03)
[2017-06-14] MEDS: CLOPIDOGREL 75 MG TABLET PO SCH (08:03)
[2017-06-14] MEDS: ASPIRIN 81 MG TAB.CHEW PO SCH (08:03)
[2017-06-14] MEDS: SITAGLIPTIN PHOSPHATE 50 MG TABLET PO SCH (08:03)
[2017-06-14] MEDS: FUROSEMIDE 20 MG TABLET PO SCH (08:03)
[2017-06-14 10:46] VITALS: BP 139/57
[2017-06-14] MEDS: INSULIN REGULAR, HUMAN 300 UNIT/3 ML VIAL SQ PRN (17:17)
--- NOTE | 2017-06-14 20:15 | NUR ---
aaox3-4 with periods of forgetfulness at times. daughter with patient. needs attended. kept comfortable. OOB to the BR with assist. Incontinent of urine and bladder at times. no acute distress noted. bed alarm on. denies any pain nor any discomfort. will monitor patient. fall precautions maintained.
[2017-06-14 20:57] VITALS: BP 121/52
[2017-06-14] MEDS: ATORVASTATIN 40 MG TABLET PO SCH (21:06)
[2017-06-14] MEDS: MELATONIN 3 MG TABLET PO SCH (21:06)
[2017-06-14] MEDS: INSULIN REGULAR, HUMAN 300 UNITS/3 ML VIAL SQ PRN (21:34)
[2017-06-14] MEDS: INSULIN GLARGINE,HUM 300 UNITS/3 ML CARTRIDGE SQ SCH (21:35)
[2017-06-15] MEDS: ZOLPIDEM 5 MG TABLET PO PRN ×2 (00:29→21:07)
--- NOTE | 2017-06-15 05:31 | NUR ---
quiet night. repositioned for comfort. turned from sides to sides. needs attended. no complaints presented so far. Had a sleeping pill earler and its effective.
[2017-06-15] MEDS: BLOOD SUGAR DIAGNOSTIC 1 EACH STRIP VI SCH ×4 (06:34→21:10)
[2017-06-15 07:48] VITALS: BP 139/63
[2017-06-15] MEDS: FUROSEMIDE 20 MG TABLET PO SCH (08:07)
[2017-06-15] MEDS: glipiZIDE 5 MG TABLET PO SCH ×2 (08:07→15:56)
[2017-06-15] MEDS: ISOSORBIDE MONONITRATE 30 MG TAB.SR.24H PO SCH (08:07)
[2017-06-15] MEDS: POTASSIUM CHLORIDE 8 MEQ CAPSULE.SA PO SCH (08:07)
[2017-06-15] MEDS: ASPIRIN 81 MG TAB.CHEW PO SCH (08:07)
[2017-06-15] MEDS: SITAGLIPTIN PHOSPHATE 50 MG TABLET PO SCH (08:07)
[2017-06-15] MEDS: MEMANTINE HCL 5 MG TABLET PO SCH ×2 (08:08→21:06)
[2017-06-15] MEDS: CLOPIDOGREL 75 MG TABLET PO SCH (08:08)
[2017-06-15] MEDS: NIFEdipine XL 90 MG TABSR PO SCH (08:08)
[2017-06-15] MEDS: CARVEDILOL 6.25 MG TABLET PO SCH ×2 (08:08→17:08)
[2017-06-15] MEDS: INSULIN REGULAR, HUMAN 300 UNIT/3 ML VIAL SQ PRN ×2 (11:36→15:43)
--- NOTE | 2017-06-15 16:16 | NUR ---
PT WENT TO THE PATIO WITH HER FAMILY VIA WHEEL CHAIR IN STABLE CONDITION.
[2017-06-15] MEDS: ATORVASTATIN 40 MG TABLET PO SCH (21:06)
[2017-06-15] MEDS: MELATONIN 3 MG TABLET PO SCH (21:06)
[2017-06-15] MEDS: INSULIN REGULAR, HUMAN 300 UNITS/3 ML VIAL SQ PRN (21:11)
[2017-06-15] MEDS: INSULIN GLARGINE,HUM 300 UNITS/3 ML CARTRIDGE SQ SCH (21:13)
[2017-06-15 21:25] VITALS: BP 120/55
--- NOTE | 2017-06-16 02:18 | NUR ---
quiet night. needs attended. kept comfortable,. slept well. needs attended. no acute distress noted. repositioned for comfort.turned to sides. voiding well.
[2017-06-16] MEDS: BLOOD SUGAR DIAGNOSTIC 1 EACH STRIP VI SCH ×4 (06:24→20:28)
[2017-06-16 07:00] VITALS: BP 122/50
[2017-06-16] MEDS: glipiZIDE 5 MG TABLET PO SCH ×2 (07:30→17:37)
--- NOTE | 2017-06-16 07:30 | NUR ---
Received report from weight shifter nurse, patient in bed awake, no evidence of distress noted, bed in low position, side rails up x2, bed alarm on.
[2017-06-16] MEDS: SITAGLIPTIN PHOSPHATE 50 MG TABLET PO SCH (08:45)
[2017-06-16] MEDS: NIFEdipine XL 90 MG TABSR PO SCH (08:46)
[2017-06-16] MEDS: POTASSIUM CHLORIDE 8 MEQ CAPSULE.SA PO SCH (08:46)
[2017-06-16] MEDS: ASPIRIN 81 MG TAB.CHEW PO SCH (08:46)
[2017-06-16] MEDS: CLOPIDOGREL 75 MG TABLET PO SCH (08:46)
[2017-06-16] MEDS: ISOSORBIDE MONONITRATE 30 MG TAB.SR.24H PO SCH (08:47)
[2017-06-16] MEDS: CARVEDILOL 6.25 MG TABLET PO SCH ×2 (08:47→17:37)
[2017-06-16] MEDS: MEMANTINE HCL 5 MG TABLET PO SCH ×2 (08:47→20:26)
[2017-06-16] MEDS: FUROSEMIDE 20 MG TABLET PO SCH (08:47)
[2017-06-16] MEDS ORDERED: MAGNESIUM HYDROXIDE 30 ML LIQUID UDC PO PRN (16:15)
[2017-06-16] MEDS: INSULIN REGULAR, HUMAN 300 UNIT/3 ML VIAL SQ PRN (17:36)
--- NOTE | 2017-06-16 18:28 | NUR ---
Patient has been cooperative with care, attended all therapeutic activities, and tolerated well. Shower given today. Patient is not eating meals due to pain in her mouth. Grandson brought patient cup of noodles and she tolerated all of it well. Education provided to grandson that these soups are high in sodium and to try to find a lower sodium soup if they want to keep blood pressure managed. Patient is currently in bed, no evidence of distress noted at this time, bed in low position, side rails up x2, bed alarm on.
--- NOTE | 2017-06-16 19:35 | NUR ---
Pt resting comfortably in bed. AAO x4. Family at bedside. No acute distress noted. No c/o pain or discomfort. Safety measures maintained. Call light and personal belongings within reach. Will continue to monitor.
[2017-06-16] MEDS: DOCUSATE SODIUM 100 MG CAPSULE PO SCH (20:26)
[2017-06-16] MEDS: MELATONIN 3 MG TABLET PO SCH (20:26)
[2017-06-16] MEDS: ATORVASTATIN 40 MG TABLET PO SCH (20:26)
[2017-06-16] MEDS: INSULIN GLARGINE,HUM 300 UNITS/3 ML CARTRIDGE SQ SCH (20:30)
[2017-06-16] MEDS: INSULIN REGULAR, HUMAN 300 UNITS/3 ML VIAL SQ PRN (20:31)
[2017-06-16 20:54] VITALS: BP 129/47
[2017-06-16] MEDS: ACETAMINOPHEN ES 500 MG TABLET PO PRN (23:59)
--- NOTE | 2017-06-17 05:55 | NUR ---
Pt slept intermittently at night. VSS. Meds and insulin coverage given per MD's order. Assisted to the bathroom as needed. All needs attended to promptly. Will endorse to day shift RN. Continue to monitor.
[2017-06-17] MEDS: BLOOD SUGAR DIAGNOSTIC 1 EACH STRIP VI SCH ×4 (06:40→20:26)
[2017-06-17] MEDS: glipiZIDE 5 MG TABLET PO SCH ×2 (07:30→16:41)
[2017-06-17 08:05] VITALS: BP 117/69
[2017-06-17] MEDS: NIFEdipine XL 90 MG TABSR PO SCH (09:00)
[2017-06-17] MEDS: ISOSORBIDE MONONITRATE 30 MG TAB.SR.24H PO SCH (09:54)
[2017-06-17] MEDS: POTASSIUM CHLORIDE 8 MEQ CAPSULE.SA PO SCH (09:54)
[2017-06-17] MEDS: FUROSEMIDE 20 MG TABLET PO SCH (09:54)
[2017-06-17] MEDS: DOCUSATE SODIUM 100 MG CAPSULE PO SCH ×2 (09:55→20:27)
[2017-06-17] MEDS: CLOPIDOGREL 75 MG TABLET PO SCH (09:55)
[2017-06-17] MEDS: CARVEDILOL 6.25 MG TABLET PO SCH ×2 (09:55→16:47)
[2017-06-17] MEDS: MEMANTINE HCL 5 MG TABLET PO SCH ×2 (09:56→20:27)
[2017-06-17] MEDS: ASPIRIN 81 MG TAB.CHEW PO SCH (09:56)
[2017-06-17] MEDS: CLONIDINE-TTS 3 PATCH TD SCH (09:57)
[2017-06-17] MEDS: SITAGLIPTIN PHOSPHATE 50 MG TABLET PO SCH (09:57)
--- NOTE | 2017-06-17 19:47 | NUR ---
Pt resting comfortably in bed. Daughter at bedside. AAO x3. Arabic speaking. Able to make needs known. No acute distress noted. No c/o pain or discomfort. Safety measures maintained. Bed alarm on. Call light and personal belongings within reach. Continue to monitor.
[2017-06-17 20:23] VITALS: BP 133/57
[2017-06-17] MEDS: ATORVASTATIN 40 MG TABLET PO SCH (20:27)
[2017-06-17] MEDS: MELATONIN 3 MG TABLET PO SCH (20:27)
[2017-06-17] MEDS: INSULIN REGULAR, HUMAN 300 UNITS/3 ML VIAL SQ PRN (20:33)
[2017-06-17] MEDS: INSULIN GLARGINE,HUM 300 UNITS/3 ML CARTRIDGE SQ SCH (20:34)
--- NOTE | 2017-06-18 05:47 | NUR ---
Pt slept comfortably t/o the night. Meds and insulin coverage given per MD's order. Moved pt to room 106 from 109 because bathroom will have to be shared with male patient. Explained to pt and she agreed to be moved. Assisted to the bathroom as needed. All needs attended to promptly. Will endorse to day shift RN. Continue to monitor.
[2017-06-18] MEDS: BLOOD SUGAR DIAGNOSTIC 1 EACH STRIP VI SCH ×4 (06:32→20:47)
[2017-06-18] MEDS: CARVEDILOL 6.25 MG TABLET PO SCH ×2 (08:43→17:16)
[2017-06-18] MEDS: MEMANTINE HCL 5 MG TABLET PO SCH ×2 (08:43→20:47)
[2017-06-18] MEDS: ASPIRIN 81 MG TAB.CHEW PO SCH (08:43)
[2017-06-18] MEDS: CLOPIDOGREL 75 MG TABLET PO SCH (08:43)
[2017-06-18] MEDS: DOCUSATE SODIUM 100 MG CAPSULE PO SCH ×2 (08:44→20:47)
[2017-06-18] MEDS: NIFEdipine XL 90 MG TABSR PO SCH (08:44)
[2017-06-18] MEDS: FUROSEMIDE 20 MG TABLET PO SCH (08:44)
[2017-06-18] MEDS: glipiZIDE 5 MG TABLET PO SCH ×2 (08:44→17:16)
[2017-06-18] MEDS: ISOSORBIDE MONONITRATE 30 MG TAB.SR.24H PO SCH (08:45)
[2017-06-18] MEDS: SITAGLIPTIN PHOSPHATE 50 MG TABLET PO SCH (08:45)
[2017-06-18] MEDS: POTASSIUM CHLORIDE 8 MEQ CAPSULE.SA PO SCH (08:48)
[2017-06-18 11:45] VITALS: BP 140/52
[2017-06-18] MEDS: ACETAMINOPHEN ES 500 MG TABLET PO PRN ×2 (17:19→20:59)
--- NOTE | 2017-06-18 19:30 | NUR ---
Received patient from day shift nurse. Family currently at bedside. patient is a/o x3-4, Italian speaking, with no signs of pain, sob, or acute distress. patient speaks very little Thai but able to make needs known. Pertinent assessment completed. Vital signs WNL. Bed in low position, locked, x2 side rails up. Call light within reach of patient. will continue to monitor patient through shift.
[2017-06-18 20:09] VITALS: BP 120/66
[2017-06-18] MEDS: ATORVASTATIN 40 MG TABLET PO SCH (20:47)
[2017-06-18] MEDS: INSULIN GLARGINE,HUM 300 UNITS/3 ML CARTRIDGE SQ SCH (20:48)
[2017-06-18] MEDS: INSULIN REGULAR, HUMAN 300 UNITS/3 ML VIAL SQ PRN (20:49)
[2017-06-18] MEDS: MELATONIN 3 MG TABLET PO SCH (21:00)
--- NOTE | 2017-06-19 05:30 | NUR ---
Patient slept intermittently through shift. No acute distress noted. All needs attended to. All medication administered as ordered per MD. Safety measures implemented. Call light within reach. Will endorse to day shift nurse.
[2017-06-19] MEDS: BLOOD SUGAR DIAGNOSTIC 1 EACH STRIP VI SCH ×4 (06:32→20:52)
--- NOTE | 2017-06-19 06:32 | NUR ---
Blood sugar this AM at 67. patient alert, awake, & asymptomatic. Gave patient orange juice and cookies. Will re assess BS and endorse to day shift nurse.
[2017-06-19 08:30] VITALS: BP 126/75
[2017-06-19] MEDS: CARVEDILOL 6.25 MG TABLET PO SCH ×2 (08:36→17:23)
[2017-06-19] MEDS: glipiZIDE 5 MG TABLET PO SCH ×2 (08:37→17:22)
[2017-06-19] MEDS: ASPIRIN 81 MG TAB.CHEW PO SCH (08:37)
[2017-06-19] MEDS: MEMANTINE HCL 5 MG TABLET PO SCH ×2 (08:37→20:49)
[2017-06-19] MEDS: FUROSEMIDE 20 MG TABLET PO SCH (08:38)
[2017-06-19] MEDS: ISOSORBIDE MONONITRATE 30 MG TAB.SR.24H PO SCH (08:38)
[2017-06-19] MEDS: DOCUSATE SODIUM 100 MG CAPSULE PO SCH ×2 (08:38→20:49)
[2017-06-19] MEDS: POTASSIUM CHLORIDE 8 MEQ CAPSULE.SA PO SCH (08:38)
[2017-06-19] MEDS: CLOPIDOGREL 75 MG TABLET PO SCH (08:38)
[2017-06-19] MEDS: NIFEdipine XL 90 MG TABSR PO SCH (08:39)
[2017-06-19] MEDS: SITAGLIPTIN PHOSPHATE 50 MG TABLET PO SCH (08:40)
--- NOTE | 2017-06-19 15:20 | NUR ---
Referred by diet consultant to see patient as patient only speak Icelandic. Spoke with patient , obtained food preferences. Patient states having difficulty chewing chicken on MSOFT diet, will send chop fine chicken. Patient dislike mighty shake, agree to try magic cup. Will f/u with PO intake. Addendum: 06/19/17 at [address] Amended: Links added.
--- NOTE | 2017-06-19 19:30 | NUR ---
Patient stable at start of shift. No current signs of pain, sob, or acute distress. Family currently at bedside. Patient is Bulgarian speaking but able to make needs known. Pertinent assessment completed. Vital signs WNL at start of shift. Bed in low position x2 side rails up.Call light within reach of pt. Will continue to monitor pt through shift.
[2017-06-19 20:29] VITALS: BP 133/49
[2017-06-19] MEDS: ATORVASTATIN 40 MG TABLET PO SCH (20:49)
[2017-06-19] MEDS: INSULIN GLARGINE,HUM 300 UNITS/3 ML CARTRIDGE SQ SCH (20:51)
[2017-06-19] MEDS: INSULIN REGULAR, HUMAN 300 UNITS/3 ML VIAL SQ PRN (20:51)
[2017-06-19] MEDS: ACETAMINOPHEN ES 500 MG TABLET PO PRN (22:00)
--- NOTE | 2017-06-20 06:05 | NUR ---
Patient stable through shift. No acute distress noted. Vital signs WNL. All needs attended to. patient turned & repositioned every 2 hours. All meds administered as ordered per MD. Safety measures implemented. Call light within reach of patient. Will endorse to day shift RN.
[2017-06-20] MEDS: BLOOD SUGAR DIAGNOSTIC 1 EACH STRIP VI SCH ×4 (06:33→21:12)
[2017-06-20 07:30] VITALS: BP 141/58
[2017-06-20] MEDS: FUROSEMIDE 20 MG TABLET PO SCH (08:26)
[2017-06-20] MEDS: glipiZIDE 5 MG TABLET PO SCH ×2 (08:26→16:28)
[2017-06-20] MEDS: CLOPIDOGREL 75 MG TABLET PO SCH (08:26)
[2017-06-20] MEDS: POTASSIUM CHLORIDE 8 MEQ CAPSULE.SA PO SCH (08:26)
[2017-06-20] MEDS: MEMANTINE HCL 5 MG TABLET PO SCH ×2 (08:26→21:09)
[2017-06-20] MEDS: DOCUSATE SODIUM 100 MG CAPSULE PO SCH ×2 (08:26→21:09)
[2017-06-20] MEDS: ASPIRIN 81 MG TAB.CHEW PO SCH (08:27)
[2017-06-20] MEDS: CARVEDILOL 6.25 MG TABLET PO SCH ×2 (08:29→17:38)
[2017-06-20] MEDS: ISOSORBIDE MONONITRATE 30 MG TAB.SR.24H PO SCH (08:29)
[2017-06-20] MEDS: SITAGLIPTIN PHOSPHATE 50 MG TABLET PO SCH (08:34)
[2017-06-20] MEDS: NIFEdipine XL 90 MG TABSR PO SCH (08:36)
--- NOTE | 2017-06-20 09:12 | NUR ---
SBAR report received, board updated. Pt assessed to alert and oriented x3. Pt able to make needs known. Pt assisted to bathroom with walker x1 assist, voided, changed, dry, & clean. No acute distress noted at this time. Bed in locked and lowest position. Pt complaint with all routine morning medications. All comfort and safety measures met. Will continue to monitor.
--- NOTE | 2017-06-20 14:11 | NUR ---
INTERDISCIPLINARY TEAM CONFERENCE
--- NOTE | 2017-06-20 17:39 | NUR ---
Pt BP 122/50, 72 Coreg administered per MD orders to maintain blood pressure control. Pt repositioned for comfort. Call light within reach. Will continue to monitor and endorse to on coming shift lab technician.
--- NOTE | 2017-06-20 19:35 | NUR ---
Received pt in bed, AAO x 3 with family at bedside. No acute distress noted. Verbally responsive and able to make needs known. Denies pain or discomfort at this time. Per daughter, patient was complaining of gum pain and "inability to use dentures due to redness." Upon assessment, no redness noted on gums but pt states that "she has pain during the day". Family is requesting to have soup for her meals. Will follow up. All safety measures and fall precautions maintained. Call light and all personal belongings within reach. Will continue to monitor.
[2017-06-20 21:02] VITALS: BP 115/64
[2017-06-20] MEDS: ATORVASTATIN 40 MG TABLET PO SCH (21:09)
[2017-06-20] MEDS: ACETAMINOPHEN ES 500 MG TABLET PO PRN (21:10)
[2017-06-20] MEDS: INSULIN GLARGINE,HUM 300 UNITS/3 ML CARTRIDGE SQ SCH (21:12)
[2017-06-21] MEDS: glipiZIDE 5 MG TABLET PO SCH ×2 (06:31→17:00)
[2017-06-21] MEDS: BLOOD SUGAR DIAGNOSTIC 1 EACH STRIP VI SCH ×4 (06:31→20:50)
[2017-06-21 07:20] LABS: BASOPHILS % (AUTO) 0.5 % (0.0-2.0); EOSINOPHILS # (AUTO) 0.1 K/uL (0.0-0.7); EOSINOPHILS % (AUTO) 2.4 % (0.0-7.0); HEMATOCRIT 35.3 % (31.2-41.9); HEMOGLOBIN 11.7 g/dL (10.9-14.3); LYMPHOCYTES # (AUTO) 1.1 K/uL (20.0-40.0); LYMPHOCYTES % (AUTO) 20.3 % (20.5-51.5); MEAN CORPUSCULAR HEMOGLOBIN 28.8 uug (24.7-32.8); MEAN CORPUSCULAR HGB CONC 33 g/dL (32.3-35.6); MONOCYTES # (AUTO) 0.5 K/uL (2.0-10.0); MONOCYTES % (AUTO) 9.7 % (0.0-11.0); NEUTROPHILS # (AUTO) 3.7 K/uL (1.8-8.9); NEUTROPHILS % (AUTO) 67.1 % (38.5-71.5); PLATELET COUNT (AUTO) 258 K/uL (179-408); RED BLOOD CELL COUNT(AUTO) 4.06 MIL/uL (3.63-4.92); WHITE BLOOD COUNT (AUTO) 5.5 K/uL (3.8-11.8)
[2017-06-21 07:38] LABS: ALANINE AMINOTRANSFERASE 16 U/L (14-59); ALKALINE PHOSPHATASE 61 U/L (50-136); ASPARTATE AMINOTRANSFERASE 22 U/L (15-37); BILIRUBIN,TOTAL 0.3 mg/dL (0.2-1.0); CARBON DIOXIDE 26 mmol/L (21-32); CHLORIDE 105 mmol/L (98-107); CREATININE 1.7 mg/dL (0.6-1.3); GLUCOSE 120 mg/dL (74-106); MAGNESIUM 1.7 mg/dL (1.8-2.4); PHOSPHOROUS 4.8 mg/dL (2.5-4.9); POTASSIUM 4.1 mmol/L (3.5-5.1); TOTAL PROTEIN, SERUM 6.9 g/dL (6.4-8.2); UREA NITROGEN, BLOOD 33 mg/dL (7-18)
--- NOTE | 2017-06-21 08:00 | NUR ---
Received patient awake, alert, verbally responsive, not in any form of acute distress. She denies any pain or discomfort at this time. Call light placed within reach. Assisted to her needs.
[2017-06-21 08:59] VITALS: BP 123/53
--- NOTE | 2017-06-21 09:53 | NUR ---
Notified Dr. Sukhjinder Winters who is in the unit regarding magnesium of 1.7 and MD ordered magnesium oxide 800mg PO x1. Order carried out. Patient made aware.
[2017-06-21] MEDS: POTASSIUM CHLORIDE 8 MEQ CAPSULE.SA PO SCH (09:56)
[2017-06-21] MEDS: NIFEdipine XL 90 MG TABSR PO SCH (09:56)
[2017-06-21] MEDS: CLOPIDOGREL 75 MG TABLET PO SCH (09:56)
[2017-06-21] MEDS: ASPIRIN 81 MG TAB.CHEW PO SCH (09:56)
[2017-06-21] MEDS: MEMANTINE HCL 5 MG TABLET PO SCH ×2 (09:56→20:50)
[2017-06-21] MEDS: FUROSEMIDE 20 MG TABLET PO SCH (09:56)
[2017-06-21] MEDS: DOCUSATE SODIUM 100 MG CAPSULE PO SCH ×2 (09:56→20:50)
[2017-06-21] MEDS: CARVEDILOL 6.25 MG TABLET PO SCH ×2 (09:57→17:03)
[2017-06-21] MEDS ORDERED: MAGNESIUM OXIDE 400 MG TABLET PO ONE (10:00)
[2017-06-21] MEDS: SITAGLIPTIN PHOSPHATE 50 MG TABLET PO SCH (10:00)
[2017-06-21] MEDS: ISOSORBIDE MONONITRATE 30 MG TAB.SR.24H PO SCH (10:00)
[2017-06-21] MEDS: INSULIN REGULAR, HUMAN 300 UNIT/3 ML VIAL SQ PRN (12:40)
--- NOTE | 2017-06-21 19:30 | NUR ---
Received patient laying in bed, awake, alert with family at bedside. shift report done at bedside. Vital signs taken and recorded, with no signs of sob, or acute distress. Denies of pain. Pertinent assessment completed. Safety measures provided, bed in low position x2 side rails up. call light placed within reach of pt. will continue to monitor pt through shift.
[2017-06-21 20:42] VITALS: BP 116/44
[2017-06-21] MEDS: ATORVASTATIN 40 MG TABLET PO SCH (20:50)
[2017-06-21] MEDS: ACETAMINOPHEN ES 500 MG TABLET PO PRN (20:50)
[2017-06-21] MEDS: INSULIN GLARGINE,HUM 300 UNITS/3 ML CARTRIDGE SQ SCH (20:52)
[2017-06-21] MEDS: INSULIN REGULAR, HUMAN 300 UNITS/3 ML VIAL SQ PRN (20:53)
[2017-06-22] MEDS: BLOOD SUGAR DIAGNOSTIC 1 EACH STRIP VI SCH ×4 (06:31→20:22)
[2017-06-22] MEDS: glipiZIDE 5 MG TABLET PO SCH ×2 (06:32→16:36)
[2017-06-22 07:00] VITALS: BP 109/49
--- NOTE | 2017-06-22 07:30 | NUR ---
received report from night nurse. patient stable, awake in bed upon initial assessment. no s/s acute distress. VSS. call light within reach. will continue to monitor.
[2017-06-22] MEDS: CARVEDILOL 6.25 MG TABLET PO SCH ×2 (08:00→17:58)
[2017-06-22] MEDS: ISOSORBIDE MONONITRATE 30 MG TAB.SR.24H PO SCH (09:00)
[2017-06-22] MEDS: NIFEdipine XL 90 MG TABSR PO SCH (09:00)
[2017-06-22] MEDS: SITAGLIPTIN PHOSPHATE 50 MG TABLET PO SCH (09:35)
[2017-06-22] MEDS: POTASSIUM CHLORIDE 8 MEQ CAPSULE.SA PO SCH (09:36)
[2017-06-22] MEDS: DOCUSATE SODIUM 100 MG CAPSULE PO SCH ×2 (09:36→20:19)
[2017-06-22] MEDS: CLOPIDOGREL 75 MG TABLET PO SCH (09:36)
[2017-06-22] MEDS: MEMANTINE HCL 5 MG TABLET PO SCH ×2 (09:37→20:19)
[2017-06-22] MEDS: FUROSEMIDE 20 MG TABLET PO SCH (09:37)
[2017-06-22] MEDS: ASPIRIN 81 MG TAB.CHEW PO SCH (09:37)
[2017-06-22] MEDS: INSULIN REGULAR, HUMAN 300 UNIT/3 ML VIAL SQ PRN ×3 (11:36→20:25)
--- NOTE | 2017-06-22 18:16 | NUR ---
patient stable entire shift. no s/s pain or acute distress. tolerated all cares and medications well. patient sitting in bedside chair. daughter at bedside. will continue to monitor
[2017-06-22 20:16] VITALS: BP 111/43
[2017-06-22] MEDS: ATORVASTATIN 40 MG TABLET PO SCH (20:19)
[2017-06-22] MEDS: INSULIN GLARGINE,HUM 300 UNITS/3 ML CARTRIDGE SQ SCH (20:26)
[2017-06-22] MEDS: ACETAMINOPHEN ES 500 MG TABLET PO PRN (22:59)
[2017-06-23] MEDS: glipiZIDE 5 MG TABLET PO SCH ×2 (06:28→16:17)
[2017-06-23] MEDS: BLOOD SUGAR DIAGNOSTIC 1 EACH STRIP VI SCH ×4 (06:32→21:47)
[2017-06-23 09:14] VITALS: BP 149/58
[2017-06-23] MEDS: DOCUSATE SODIUM 100 MG CAPSULE PO SCH ×2 (09:22→21:45)
[2017-06-23] MEDS: ASPIRIN 81 MG TAB.CHEW PO SCH (09:22)
[2017-06-23] MEDS: SITAGLIPTIN PHOSPHATE 50 MG TABLET PO SCH (09:22)
[2017-06-23] MEDS: POTASSIUM CHLORIDE 8 MEQ CAPSULE.SA PO SCH (09:22)
[2017-06-23] MEDS: FUROSEMIDE 20 MG TABLET PO SCH (09:23)
[2017-06-23] MEDS: NIFEdipine XL 90 MG TABSR PO SCH (09:23)
[2017-06-23] MEDS: ISOSORBIDE MONONITRATE 30 MG TAB.SR.24H PO SCH (09:23)
[2017-06-23] MEDS: MEMANTINE HCL 5 MG TABLET PO SCH ×2 (09:23→21:45)
[2017-06-23] MEDS: CLOPIDOGREL 75 MG TABLET PO SCH (09:23)
[2017-06-23] MEDS: CARVEDILOL 6.25 MG TABLET PO SCH ×2 (09:24→17:19)
--- NOTE | 2017-06-23 10:03 | NUR ---
SBAR report received, board updated. Pt assessed to be alert and oriented. Pt denies breakfast this morning and requested to sleep longer due to waking up throughout the night. Pt compliant with all routinely scheduled medications. Bed in locked and lowest position, with side rails up x2. Call light and personal belongings placed within reach. Pt repositioned for comfort. Will continue to monitor.
[2017-06-23] MEDS: LIDOCAINE VISCUS 2% 15 ML UDC MM PRN ×2 (12:43→17:39)
[2017-06-23] MEDS: INSULIN REGULAR, HUMAN 300 UNIT/3 ML VIAL SQ PRN (17:16)
--- NOTE | 2017-06-23 18:28 | NUR ---
Pt comfortably resting in bed. Pt dentures cleaned, PRN pain medication applied to lower gum area allowing for increased consumption of dinner. Pt able to make needs known. Pt clean and dry, repositioned for comfort. Blood pressure medication Coreg held due to BP of 117/54, 65 pulse. Blood sugar 136 covered with 2 units of insulin. All comfort and safety needs met at this time. Call light placed within reach. Will continue to monitor.
[2017-06-23] MEDS: ATORVASTATIN 40 MG TABLET PO SCH (21:45)
[2017-06-23] MEDS: INSULIN GLARGINE,HUM 300 UNITS/3 ML CARTRIDGE SQ SCH (21:49)
[2017-06-23] MEDS: INSULIN REGULAR, HUMAN 300 UNITS/3 ML VIAL SQ PRN (21:51)
[2017-06-24] MEDS: BLOOD SUGAR DIAGNOSTIC 1 EACH STRIP VI SCH ×4 (06:40→20:48)
[2017-06-24] MEDS: glipiZIDE 5 MG TABLET PO SCH ×2 (06:40→17:17)
--- NOTE | 2017-06-24 07:30 | NUR ---
Received pt in bed, no acute distress noted. Helped pt OOB and ambulated with FWW to bathroom. Safety precautions taken, bed kept low/locked position. Plan of care discussed.
[2017-06-24] MEDS: MEMANTINE HCL 5 MG TABLET PO SCH ×2 (08:39→20:49)
[2017-06-24] MEDS: ISOSORBIDE MONONITRATE 30 MG TAB.SR.24H PO SCH (08:39)
[2017-06-24] MEDS: FUROSEMIDE 20 MG TABLET PO SCH (08:39)
[2017-06-24] MEDS: CLOPIDOGREL 75 MG TABLET PO SCH (08:39)
[2017-06-24] MEDS: NIFEdipine XL 90 MG TABSR PO SCH (08:39)
[2017-06-24] MEDS: POTASSIUM CHLORIDE 8 MEQ CAPSULE.SA PO SCH (08:39)
[2017-06-24] MEDS: DOCUSATE SODIUM 100 MG CAPSULE PO SCH ×2 (08:39→20:49)
[2017-06-24] MEDS: CARVEDILOL 6.25 MG TABLET PO SCH ×2 (08:40→17:34)
[2017-06-24] MEDS: ASPIRIN 81 MG TAB.CHEW PO SCH (08:40)
[2017-06-24] MEDS: SITAGLIPTIN PHOSPHATE 50 MG TABLET PO SCH (08:47)
[2017-06-24 10:28] VITALS: BP 124/51
[2017-06-24] MEDS: INSULIN REGULAR, HUMAN 300 UNIT/3 ML VIAL SQ PRN ×2 (12:11→17:19)
[2017-06-24] MEDS: CLONIDINE-TTS 3 PATCH TD SCH (12:20)
--- NOTE | 2017-06-24 12:20 | NUR ---
Daughter is at bedside, Pt B/P 123/51 Clonidine patch applied to left shoulder. Previous patch removed from right shoulder.
--- NOTE | 2017-06-24 18:36 | NUR ---
Pt in bed, daughter is at bedside, daughter was updated on plan of care. No acute distress noted. Call light within reach. Bed kept low/locked position.
--- NOTE | 2017-06-24 19:53 | NUR ---
Shift report done at bedside. Patient seated on her wheelchair, awake, alert with daughter at bedside. Vital signs taken and recorded, with no signs of sob, or acute distress. Denies of pain. Pertinent assessment completed. Safety measures provided, bed in low position x2 side rails up. call light placed within reach of pt. will continue to monitor pt through shift.
[2017-06-24 20:20] VITALS: BP 120/53
[2017-06-24] MEDS: ATORVASTATIN 40 MG TABLET PO SCH (20:49)
[2017-06-24] MEDS: INSULIN GLARGINE,HUM 300 UNITS/3 ML CARTRIDGE SQ SCH (20:52)
[2017-06-24] MEDS: INSULIN REGULAR, HUMAN 300 UNITS/3 ML VIAL SQ PRN (20:53)
[2017-06-24] MEDS: ACETAMINOPHEN ES 500 MG TABLET PO PRN (22:00)
[2017-06-25] MEDS: glipiZIDE 5 MG TABLET PO SCH ×2 (06:13→16:48)
[2017-06-25] MEDS: BLOOD SUGAR DIAGNOSTIC 1 EACH STRIP VI SCH ×4 (06:14→21:31)
[2017-06-25 07:47] VITALS: BP 124/57
[2017-06-25] MEDS: ASPIRIN 81 MG TAB.CHEW PO SCH (08:13)
[2017-06-25] MEDS: DOCUSATE SODIUM 100 MG CAPSULE PO SCH ×2 (08:13→21:00)
[2017-06-25] MEDS: MEMANTINE HCL 5 MG TABLET PO SCH ×2 (08:14→21:38)
[2017-06-25] MEDS: FUROSEMIDE 20 MG TABLET PO SCH (08:14)
[2017-06-25] MEDS: POTASSIUM CHLORIDE 8 MEQ CAPSULE.SA PO SCH (08:14)
[2017-06-25] MEDS: SITAGLIPTIN PHOSPHATE 50 MG TABLET PO SCH (08:15)
[2017-06-25] MEDS: ISOSORBIDE MONONITRATE 30 MG TAB.SR.24H PO SCH (08:15)
[2017-06-25] MEDS: CLOPIDOGREL 75 MG TABLET PO SCH (08:15)
[2017-06-25] MEDS: CARVEDILOL 6.25 MG TABLET PO SCH ×2 (08:15→17:00)
[2017-06-25] MEDS: NIFEdipine XL 90 MG TABSR PO SCH (08:16)
[2017-06-25] MEDS: INSULIN REGULAR, HUMAN 300 UNIT/3 ML VIAL SQ PRN ×3 (12:29→21:37)
--- NOTE | 2017-06-25 18:19 | NUR ---
Patient is currently in bed, up in the wheelchair as well during the day, participated with PT/OT as well. Patient is awake and alert, pertinent assessments done, no signs and no symptoms of acute distress, denies pain. Skin is warm and dry to touch, afebrile, no episode of hypoglycemia or hyperglycemia at this time. Needs attended promptly. Compliant with her plan of care, needs attended promptly call light is in reach.
[2017-06-25 19:46] VITALS: BP 132/56
[2017-06-25] MEDS: ATORVASTATIN 40 MG TABLET PO SCH (21:38)
[2017-06-25] MEDS: INSULIN GLARGINE,HUM 300 UNITS/3 ML CARTRIDGE SQ SCH (21:38)
[2017-06-26] MEDS: BLOOD SUGAR DIAGNOSTIC 1 EACH STRIP VI SCH ×2 (06:34→11:58)
[2017-06-26 07:00] VITALS: BP 131/54
--- NOTE | 2017-06-26 07:00 | NUR ---
Blood sugar 54 at 630, OJ GIVEN,rechecked in 15 min it was 71, OJ GIVEN AGAIN and BLOOD SUGAR WAS 81. pT ASYMPTOMATIC. sKIN WARM AND DRY. wILL CONTINUE TO MONITOR.
--- NOTE | 2017-06-26 07:10 | NUR ---
Received client in bed awake, alert and oriented times 2. No apparent signs and symptoms of SOB, pain, distress or discomfort. Client is able to communicated needs. Bed is at the lowest position for safety can call light within reach for assistance. Client is on room air. No IVs or hydration running at this time.
[2017-06-26] MEDS: SITAGLIPTIN PHOSPHATE 50 MG TABLET PO SCH (08:19)
[2017-06-26] MEDS: CARVEDILOL 6.25 MG TABLET PO SCH (08:20)
[2017-06-26] MEDS: DOCUSATE SODIUM 100 MG CAPSULE PO SCH (08:20)
[2017-06-26] MEDS: ISOSORBIDE MONONITRATE 30 MG TAB.SR.24H PO SCH (08:20)
[2017-06-26 08:21] VITALS: BP 131/54
[2017-06-26] MEDS: FUROSEMIDE 20 MG TABLET PO SCH (08:21)
[2017-06-26] MEDS: NIFEdipine XL 90 MG TABSR PO SCH (08:21)
[2017-06-26] MEDS: CLOPIDOGREL 75 MG TABLET PO SCH (08:21)
[2017-06-26] MEDS: MEMANTINE HCL 5 MG TABLET PO SCH (08:21)
[2017-06-26] MEDS: POTASSIUM CHLORIDE 8 MEQ CAPSULE.SA PO SCH (08:21)
[2017-06-26] MEDS: glipiZIDE 5 MG TABLET PO SCH (08:21)
[2017-06-26] MEDS: ASPIRIN 81 MG TAB.CHEW PO SCH (08:22)
--- NOTE | 2017-06-26 11:32 | NUR ---
Client was able to ambulate from the bed to the door with a walker. Noted that she is able to bend her right knee more then the left knee. Left leg noted with like stiffness. Addendum: 06/26/17 at 1149 by JONATHAN SIERRA RN Amended: Links added.
[2017-06-26] MEDS: INSULIN REGULAR, HUMAN 300 UNIT/3 ML VIAL SQ PRN (12:22)
--- NOTE | 2017-06-26 14:54 | NUR ---
Client discharged with orders from MD. Family by bedside, daughter and son-in-law. Client is stable. VS WNL. No signs and symptoms of SOB, pain, distress or discomfort. All discharge papers signed for. Stroke package given and reviewed with daughter. All personal belongings accounted for. Client was guided to lobby by wheelchair.
== END 2017-06-26 14:45 | disposition home health service (06) | DRG 56 ==
PROVIDERS: ADMIT Physical Medicine & Rehabilitation Pain Medicine; ATTEND Physical Medicine & Rehabilitation Pain Medicine
DX: I69.354 Hemiplegia and hemiparesis following cerebral infarction affecting left non-dominant side (principal); N17.0 Acute kidney failure with tubular necrosis; D68.59 Other primary thrombophilia; E11.22 Type 2 diabetes mellitus with diabetic chronic kidney disease; E11.649 Type 2 diabetes mellitus with hypoglycemia without coma; E11.65 Type 2 diabetes mellitus with hyperglycemia; I13.0 Hypertensive heart and chronic kidney disease with heart failure and stage 1 through stage 4 chronic kidney disease, or unspecified chronic kidney disease; I50.9 Heart failure, unspecified; J44.9 Chronic obstructive pulmonary disease, unspecified; Z87.440 Personal history of urinary (tract) infections; I10 Essential (primary) hypertension; E78.5 Hyperlipidemia, unspecified; E66.9 Obesity, unspecified; Z68.30 Body mass index [BMI] 30.0-30.9, adult; R53.1 Weakness; F01.50 Vascular dementia, unspecified severity, without behavioral disturbance, psychotic disturbance, mood disturbance, and anxiety; M19.90 Unspecified osteoarthritis, unspecified site; N18.9 Chronic kidney disease, unspecified; R26.9 Unspecified abnormalities of gait and mobility; R42 Dizziness and giddiness
CPT/HCPCS: 36415; 82306; 83735; 84100; 84443; 85025; 92526; 92610; 97110; 97112; 97116; 97530; 97535; A4663; A9150; J1815; J3420

== ENCOUNTER 2018-04-25 19:20 | Inpatient (IN) | payer MEDICARE, OTHER ==
[~2018-04-25] VITALS: Ht 152.4 cm; Wt 73.9 kg
[~2018-04-25 19:20] MED LIST: ACET-73 PO; ASPI81TA31 PO; CARV6.252 PO; CLON0.1T PO; CLON0.3P TD; CLOP75TA33 PO; ERGO500014 PO; FURO20TA4 PO; GLIP10TA21 PO; INSU300I SQ; ISOS30TA6 PO; MECL-102 PO; MELA3TAB PO; MELO-107 PO; MEMA10TA PO; NIFE90TA38 PO; POTA10TA15 PO; RAMI10CA69 PO; ROSU20TA31 PO; SITA100T PO; SITA1TAB2 PO; ZOLP10TA6 PO
[2018-04-25] MEDS ORDERED: Z GUARD REMEDY PASTE 57 GM TUBE TOP PRN (21:30)
[2018-04-25] MEDS ORDERED: ERGOCALCIFEROL 50,000 UNIT CAPSULE PO SCH (21:45)
[2018-04-25] MEDS ORDERED: ZOLPIDEM 5 MG TABLET PO PRN (21:45)
[2018-04-25] MEDS ORDERED: CLONIDINE-TTS 3 PATCH TD SCH (21:45)
[2018-04-25] MEDS ORDERED: MECLIZINE HCL 25 MG TABLET PO SCH (21:45)
[2018-04-25] MEDS ORDERED: INSULIN REGULAR, HUMAN 300 UNIT/3 ML VIAL SQ PRN (21:45)
[2018-04-25] MEDS ORDERED: DEXTROSE 50% 50 ML DISP.SYRIN IV PRN (21:45)
[2018-04-25 22:00] VITALS: BP 112/49
[2018-04-25] MEDS ORDERED: CLONIDINE-TTS 3 PATCH TD ONE (22:48)
[2018-04-26 04:36] VITALS: BP 113/45
[2018-04-26] MEDS ORDERED: PANTOPRAZOLE SODIUM 40 MG TABLET.DR PO SCH (07:00)
[2018-04-26] MEDS ORDERED: INSULIN REGULAR, HUMAN 300 UNIT/3 ML VIAL ONE (07:02)
[2018-04-26] MEDS ORDERED: MECLIZINE HCL 25 MG TABLET PO PRN (07:03)
[2018-04-26] MEDS ORDERED: BLOOD SUGAR DIAGNOSTIC 1 EACH STRIP VI SCH (07:30)
[2018-04-26 07:39] LABS: BASOPHILS % (AUTO) 0.1 % (0.0-2.0); EOSINOPHILS % (AUTO) 0.1 % (0.0-7.0); HEMATOCRIT 26.9 % (31.2-41.9); HEMOGLOBIN 9.2 g/dL (10.9-14.3); LYMPHOCYTES # (AUTO) 0.4 K/uL (20.0-40.0); LYMPHOCYTES % (AUTO) 12.1 % (20.5-51.5); MEAN CORPUSCULAR HGB CONC 34 g/dL (32.3-35.6); MEAN CORPUSCULAR VOLUME 90.6 fL (75.5-95.3); MONOCYTES # (AUTO) 0.1 K/uL (2.0-10.0); MONOCYTES % (AUTO) 2.8 % (0.0-11.0); NEUTROPHILS # (AUTO) 3.1 K/uL (1.8-8.9); NEUTROPHILS % (AUTO) 84.9 % (38.5-71.5); PLATELET COUNT (AUTO) 211 K/uL (179-408); RED BLOOD CELL COUNT(AUTO) 2.97 MIL/uL (3.63-4.92); WHITE BLOOD COUNT (AUTO) 3.7 K/uL (3.8-11.8)
[2018-04-26 08:00] VITALS: BP 122/46
[2018-04-26 08:00] LABS: THYROID STIMULATING HORMONE 1.285 mIU/mL (0.358-3.740)
[2018-04-26] MEDS ORDERED: INSULIN REGULAR, HUMAN 300 UNIT/3 ML VIAL SQ ONE (08:15)
[2018-04-26 08:18] LABS: GLUCOSE 541 mg/dL (74-106)
[2018-04-26 08:20] LABS: ALANINE AMINOTRANSFERASE 19 U/L (14-59); ALKALINE PHOSPHATASE 53 U/L (50-136); ASPARTATE AMINOTRANSFERASE 8 U/L (15-37); BILIRUBIN,TOTAL 0.3 mg/dL (0.2-1.0); CARBON DIOXIDE 23 mmol/L (21-32); CHLORIDE 100 mmol/L (98-107); CHOLESTEROL 130 mg/dL (<200); CREATININE 2.1 mg/dL (0.6-1.3); HDL CHOLESTEROL 56 mg/dL (40-60); MAGNESIUM 2.3 mg/dL (1.8-2.4); PHOSPHOROUS 4.8 mg/dL (2.5-4.9); POTASSIUM 6.1 mmol/L (3.5-5.1); TOTAL PROTEIN, SERUM 6.1 g/dL (6.4-8.2); TRIGLYCERIDES 49 MG/DL (30-150); UREA NITROGEN, BLOOD 69 mg/dL (7-18)
[2018-04-26] MEDS ORDERED: glipiZIDE XL 5 MG TABCR PO SCH (09:00)
[2018-04-26] MEDS ORDERED: MELOXICAM 7.5 MG TABLET PO SCH (09:00)
[2018-04-26] MEDS ORDERED: FUROSEMIDE 20 MG TABLET PO SCH (09:00)
[2018-04-26] MEDS ORDERED: ISOSORBIDE MONONITRATE 30 MG TAB.SR.24H PO SCH (09:00)
[2018-04-26] MEDS ORDERED: CARVEDILOL 6.25 MG TABLET PO SCH (09:00)
[2018-04-26] MEDS ORDERED: ASPIRIN EC 81 MG TABLET.DR PO SCH (09:00)
[2018-04-26] MEDS ORDERED: MEMANTINE HCL 10 MG TABLET PO SCH (09:00)
[2018-04-26] MEDS ORDERED: NIFEdipine XL 90 MG TABSR PO SCH (09:00)
[2018-04-26] MEDS ORDERED: GLIPIZIDE 10 MG PO SCH (09:00)
[2018-04-26] MEDS ORDERED: ERGOCALCIFEROL 50,000 UNIT CAPSULE PO SCH (09:00)
[2018-04-26] MEDS ORDERED: CLOPIDOGREL 75 MG TABLET PO SCH (09:00)
[2018-04-26] MEDS ORDERED: Medication Not On Formulary EA (Meloxicam 15 MG) PO SCH (09:00)
[2018-04-26] MEDS ORDERED: POTASSIUM CHLORIDE 8 MEQ TAB.PRT.SR PO SCH (09:00)
[2018-04-26] MEDS ORDERED: Medication Not On Formulary EA (Potassium Chloride 8 MEQ) PO SCH (09:00)
[2018-04-26 09:45] VITALS: BP 122/46
[2018-04-26] MEDS ORDERED: ATORVASTATIN 40 MG TABLET PO SCH (21:00)
[2018-04-26] MEDS ORDERED: MEMANTINE HCL 5 MG TABLET PO SCH (21:00)
[2018-04-26] MEDS ORDERED: DOCUSATE SODIUM 100 MG CAPSULE PO SCH (21:00)
[2018-04-26] MEDS ORDERED: INSULIN GLARGINE,HUM 300 UNITS/3 ML CARTRIDGE SQ SCH (21:00)
== END 2018-04-26 15:00 | disposition short-term general hospital (02) | DRG 554 ==
LOC: TELE-TD 04-26 10:00 → MED 04-26 13:54
PROVIDERS: ADMIT Physical Medicine & Rehabilitation Pain Medicine; ATTEND Physical Medicine & Rehabilitation Pain Medicine
DX: M17.12 Unilateral primary osteoarthritis, left knee (principal); N17.9 Acute kidney failure, unspecified; I69.354 Hemiplegia and hemiparesis following cerebral infarction affecting left non-dominant side; E87.5 Hyperkalemia; E11.9 Type 2 diabetes mellitus without complications; F03.90 Unspecified dementia, unspecified severity, without behavioral disturbance, psychotic disturbance, mood disturbance, and anxiety; I11.0 Hypertensive heart disease with heart failure; I50.9 Heart failure, unspecified; R53.1 Weakness; Z88.8 Allergy status to other drugs, medicaments and biological substances
CPT/HCPCS: 36415; 83735; 84100; 84443; 85025; A4663; J1815; J8499

== ENCOUNTER 2018-04-29 17:32 | Inpatient (IN) | payer MEDICARE, OTHER ==
[~2018-04-29] VITALS: Ht 160 cm; Wt 73.5 kg
--- NOTE | 2018-04-29 17:15 | NUR ---
Admitted from second floor Med-Surg for Hyperglycemia and acute renal failure, per rashmi accompanied by RN. Patient awake, alert x 3-4. Not in any form of distress, with intact and patent IV G 20 on left forearm. Oriented to unit and equipment. Informed Dr Win of admission. Routine admission care done.
[~2018-04-29 17:32] MED LIST changes: -CLON0.1T PO; -MELA3TAB PO
[2018-04-29] MEDS ORDERED: MAGNESIUM HYDROXIDE 30 ML LIQUID UDC PO PRN (17:45)
[2018-04-29] MEDS ORDERED: Z GUARD REMEDY PASTE 57 GM TUBE TOP PRN (17:45)
[2018-04-29] MEDS ORDERED: NITR0.4T48 SL (18:11)
[2018-04-29] MEDS ORDERED: INSU100V28 (18:11)
[2018-04-29] MEDS ORDERED: HYDR-4384 PO (18:11)
[2018-04-29] MEDS ORDERED: BISA-79 PO (18:11)
[2018-04-29] MEDS ORDERED: LORA1TAB PO (18:11)
[2018-04-29] MEDS ORDERED: ATOR40TA PO (18:11)
[2018-04-29] MEDS ORDERED: PANT40TA2 PO (18:11)
[2018-04-29] MEDS ORDERED: ZOLP5TAB8 PO (18:11)
[2018-04-29 18:14] VITALS: BP 171/62
--- NOTE | 2018-04-29 18:20 | NUR ---
Informed Evi Monroy of admission and requested for medication reconciliation.
[2018-04-29 18:29] VITALS: BP 171/62
[2018-04-29] MEDS ORDERED: ZOLPIDEM 5 MG TABLET PO PRN (18:45)
[2018-04-29] MEDS ORDERED: MECLIZINE HCL 25 MG TABLET PO PRN (18:45)
[2018-04-29] MEDS ORDERED: ACETAMINOPHEN ES 500 MG TABLET PO PRN (18:45)
[2018-04-29] MEDS ORDERED: DEXTROSE 50% 50 ML DISP.SYRIN IV PRN (18:45)
[2018-04-29] MEDS ORDERED: BISACODYL 5 MG TABLET.DR PO PRN (18:45)
[2018-04-29] MEDS ORDERED: LORAZEPAM 1 MG TABLET PO PRN (18:45)
--- NOTE | 2018-04-29 19:01 | NUR ---
Medication reconciliation done by Evi Monroy
[2018-04-29] MEDS: ATORVASTATIN 40 MG TABLET PO SCH (20:38)
[2018-04-29] MEDS: BLOOD SUGAR DIAGNOSTIC 1 EACH STRIP VI SCH (20:38)
[2018-04-29] MEDS: INSULIN REGULAR, HUMAN 300 UNIT/3 ML VIAL SQ PRN (20:46)
[2018-04-29] MEDS ORDERED: INSULIN GLARGINE,HUM 300 UNITS/3 ML CARTRIDGE SQ SCH (21:00)
[2018-04-29] MEDS ORDERED: BLOOD SUGAR DIAGNOSTIC 1 EACH STRIP VI SCH (21:00)
[2018-04-29 21:30] VITALS: BP 147/63
--- NOTE | 2018-04-29 23:09 | NUR ---
Received pt in bed, AAO x 3, with family at bedside. No acute distress noted. Verbally responsive and able to communicate basic needs. Primarily Japanese speaking but able to communicate basic icelandic. Denies pain or discomfort. Sugar checked, noted to be 190, coverage provided per sliding scale as ordered by MD. All due medications given as ordered, tolerated well. Assisted to restroom using walker x 1 person, minimal assistance. All safety measures and fall precautions maintained. Call light and all personal belongings within reach. Will continue to monitor.
[2018-04-30 05:32] VITALS: BP 135/56
[2018-04-30 06:51] LABS: BASOPHILS % (AUTO) 0.2 % (0.0-2.0); EOSINOPHILS # (AUTO) 0.1 K/uL (0.0-0.7); EOSINOPHILS % (AUTO) 1.4 % (0.0-7.0); HEMATOCRIT 31.3 % (31.2-41.9); HEMOGLOBIN 10.9 g/dL (10.9-14.3); LYMPHOCYTES # (AUTO) 1.3 K/uL (20.0-40.0); LYMPHOCYTES % (AUTO) 20.5 % (20.5-51.5); MEAN CORPUSCULAR HEMOGLOBIN 30.3 uug (24.7-32.8); MEAN CORPUSCULAR HGB CONC 35 g/dL (32.3-35.6); MONOCYTES # (AUTO) 0.5 K/uL (2.0-10.0); MONOCYTES % (AUTO) 8.1 % (0.0-11.0); NEUTROPHILS # (AUTO) 4.4 K/uL (1.8-8.9); NEUTROPHILS % (AUTO) 69.8 % (38.5-71.5); PLATELET COUNT (AUTO) 246 K/uL (179-408); WHITE BLOOD COUNT (AUTO) 6.3 K/uL (3.8-11.8)
[2018-04-30] MEDS: BLOOD SUGAR DIAGNOSTIC 1 EACH STRIP VI SCH ×4 (07:01→20:33)
[2018-04-30 07:02] LABS: CARBON DIOXIDE 27 mmol/L (21-32); CHLORIDE 107 mmol/L (98-107); CREATININE 1.6 mg/dL (0.6-1.3); GLUCOSE 62 mg/dL (74-106); MAGNESIUM 1.8 mg/dL (1.8-2.4); PHOSPHOROUS 4.2 mg/dL (2.5-4.9); POTASSIUM 4.4 mmol/L (3.5-5.1); UREA NITROGEN, BLOOD 37 mg/dL (7-18)
--- NOTE | 2018-04-30 07:05 | NUR ---
Sugar checked this AM noted to be 47, no acute distress noted. Verbally responsive and able to make needs known. Maintains baseline mental status. OJ given. Re-checked, noted to be 59. OJ given again. Checked 3x and noted to be 94. Safety maintained. Call light within reach. Will endorse accordingly. Will continue to monitor.
[2018-04-30 08:00] VITALS: BP 158/69
[2018-04-30] MEDS: NIFEdipine XL 90 MG TABSR PO SCH (08:31)
[2018-04-30] MEDS: ASPIRIN 81 MG TAB.CHEW PO SCH (08:32)
[2018-04-30] MEDS: CARVEDILOL 6.25 MG TABLET PO SCH ×2 (08:32→17:32)
[2018-04-30] MEDS: PANTOPRAZOLE SODIUM 40 MG TABLET.DR PO SCH (08:32)
--- NOTE | 2018-04-30 09:35 | NUR ---
Resident received in bed. Alert and oriented x 3-4. Patient stated to have pain in Left leg. Tylenol given for pain management. All other medications given-tolerated well. Stroke assessment performed. Left sided arm weakness present. Physical Therapy with patient now. Blood Sugar at 94. No coverage given. Will continue to monitor.
[2018-04-30 16:00] VITALS: BP 152/66
--- NOTE | 2018-04-30 18:40 | NUR ---
End of shift Note: Patient complaint of pail in left heel throughout shift. Assessed heel: dry, blanchable skin. No open ecchymosis. Given Tylenol 500mg in the AM, but refused pain management for the rest of shift. Lucas Barroso stated that patient describes pain to be, "electric pain that is similar to when your foot falls asleep". Meplex and lotion placed on heel. Hells floated with assist of one pillow. Blood Sugar controlled throughout shift. No insulin given at this shift. Resting comfortably at this time, with call light and most used items within reach. Will inform oncoming shift accordingly.
[2018-04-30] MEDS: ATORVASTATIN 40 MG TABLET PO SCH (20:29)
[2018-04-30] MEDS: INSULIN GLARGINE,HUM 300 UNITS/3 ML CARTRIDGE SQ SCH (20:37)
[2018-04-30 21:15] VITALS: BP 149/64
--- NOTE | 2018-05-01 04:33 | NUR ---
quiet night. aaox4 no acute distress noted. ambulates to the BR with supervision. voiding freely. tolerated po meds well. denies any pain nor any discomfort. will monitor patient. VSS. kept comfortable. fall precautions maintained. siderails up for safety.
[2018-05-01 05:36] VITALS: BP 122/68
[2018-05-01 05:37] VITALS: BP 127/50
[2018-05-01] MEDS: BLOOD SUGAR DIAGNOSTIC 1 EACH STRIP VI SCH ×4 (06:30→20:37)
[2018-05-01 07:20] LABS: BASOPHILS % (AUTO) 0.2 % (0.0-2.0); EOSINOPHILS # (AUTO) 0.1 K/uL (0.0-0.7); EOSINOPHILS % (AUTO) 1.4 % (0.0-7.0); HEMOGLOBIN 10.8 g/dL (10.9-14.3); LYMPHOCYTES # (AUTO) 1.1 K/uL (20.0-40.0); MEAN CORPUSCULAR HEMOGLOBIN 30.4 uug (24.7-32.8); MEAN CORPUSCULAR HGB CONC 35 g/dL (32.3-35.6); MEAN CORPUSCULAR VOLUME 87.5 fL (75.5-95.3); MONOCYTES # (AUTO) 0.5 K/uL (2.0-10.0); MONOCYTES % (AUTO) 8.9 % (0.0-11.0); NEUTROPHILS % (AUTO) 70.5 % (38.5-71.5); PLATELET COUNT (AUTO) 226 K/uL (179-408); RED BLOOD CELL COUNT(AUTO) 3.54 MIL/uL (3.63-4.92); WHITE BLOOD COUNT (AUTO) 5.7 K/uL (3.8-11.8)
[2018-05-01 07:30] VITALS: BP 148/63
[2018-05-01 07:33] LABS: CARBON DIOXIDE 26 mmol/L (21-32); CHLORIDE 106 mmol/L (98-107); CREATININE 1.6 mg/dL (0.6-1.3); GLUCOSE 181 mg/dL (74-106); MAGNESIUM 1.7 mg/dL (1.8-2.4); PHOSPHOROUS 3.7 mg/dL (2.5-4.9); POTASSIUM 4.7 mmol/L (3.5-5.1); UREA NITROGEN, BLOOD 35 mg/dL (7-18)
--- NOTE | 2018-05-01 08:00 | NUR ---
Received patient awake, alert x 3-4. Not in any form of distress. No complaints of discomfort noted. No dizziness or SOB. Intact and patent G 20 saline lock on left forearm.
[2018-05-01] MEDS: PANTOPRAZOLE SODIUM 40 MG TABLET.DR PO SCH (08:28)
[2018-05-01] MEDS: CARVEDILOL 6.25 MG TABLET PO SCH ×2 (08:29→17:38)
[2018-05-01] MEDS: ASPIRIN 81 MG TAB.CHEW PO SCH (08:29)
[2018-05-01] MEDS: NIFEdipine XL 90 MG TABSR PO SCH (08:29)
[2018-05-01] MEDS: INSULIN REGULAR, HUMAN 300 UNIT/3 ML VIAL SQ PRN ×4 (08:31→20:39)
--- NOTE | 2018-05-01 09:00 | NUR ---
Up with occupational therapy, tolerating well. No complaints of pain noted.
[2018-05-01] MEDS ORDERED: MAGNESIUM OXIDE 400 MG TABLET PO ONE (13:00)
--- NOTE | 2018-05-01 13:33 | NUR ---
INTERDISCIPLINARY TEAM CONFERENCE
--- NOTE | 2018-05-01 13:33 | NUR ---
INTERDISCIPLINARY TEAM CONFERENCE
[2018-05-01 16:25] VITALS: BP 146/55
--- NOTE | 2018-05-01 19:00 | NUR ---
Awake during initial rounds. Family at bedside. Patient denies any pain/discomforts at this time. HL LH intact and patent, wrapped with Kerlix roll. No s/s of infiltration noted. No s/s of hypo/hyperglycemia. No s/s hypo/hypertension. Safety measure and fall precaution maintained. Continue care as planned.
[2018-05-01] MEDS: INSULIN GLARGINE,HUM 300 UNITS/3 ML CARTRIDGE SQ SCH (20:38)
[2018-05-01] MEDS: ATORVASTATIN 40 MG TABLET PO SCH (20:42)
[2018-05-01 21:05] VITALS: BP 137/54
[2018-05-02] MEDS: BLOOD SUGAR DIAGNOSTIC 1 EACH STRIP VI SCH ×4 (06:34→20:42)
--- NOTE | 2018-05-02 07:11 | NUR ---
Shift End Report: Slept well. No complaint presented all night. No s/s of hypo/hyperglycemia. No s/s of hypo/hypertension. No fall/injury. All needs attended and met. No significant event reported. Continue current rehab plan of care.
[2018-05-02 08:00] VITALS: BP 142/65
[2018-05-02] MEDS: CARVEDILOL 6.25 MG TABLET PO SCH ×2 (09:01→17:32)
[2018-05-02] MEDS: ASPIRIN 81 MG TAB.CHEW PO SCH (09:01)
[2018-05-02] MEDS: NIFEdipine XL 90 MG TABSR PO SCH (09:02)
[2018-05-02] MEDS: PANTOPRAZOLE SODIUM 40 MG TABLET.DR PO SCH (09:03)
--- NOTE | 2018-05-02 12:34 | NUR ---
BLOOD SUGAR 195 REFUSED INSULIN SLIDING SCALE COVERAGE FOR LUNCH
[2018-05-02 16:00] VITALS: BP 154/63
--- NOTE | 2018-05-02 17:36 | NUR ---
DINNER BLOOD SUGAR 186 REFUSED SLIDING SCALE COVERAGE
[2018-05-02 19:30] VITALS: BP 122/47
[2018-05-02] MEDS: ATORVASTATIN 40 MG TABLET PO SCH (20:42)
[2018-05-02] MEDS: INSULIN REGULAR, HUMAN 300 UNIT/3 ML VIAL SQ PRN (20:43)
[2018-05-02] MEDS: INSULIN GLARGINE,HUM 300 UNITS/3 ML CARTRIDGE SQ SCH (20:44)
--- NOTE | 2018-05-02 22:16 | NUR ---
Received pt in bed, AAO x 3 with family member at bedside. No acute distress noted. Verbally responsive, primarily Rwandan speaking but able to communicate basic needs. All due medications given as ordered, tolerated well. Sugar checked, noted to be 288 - coverage provided per sliding scale as ordered by MD. Assisted to bathroom using walker x 1 assist, had BM x 1. All safety measures and fall precautions maintained. Call light and all personal belongings within reach. Will continue to monitor. Addendum: 05/02/18 at 2221 by Bernabe Lama RN Denies pain or discomfort at this time.
[2018-05-03 04:30] VITALS: BP 127/48
[2018-05-03] MEDS: BLOOD SUGAR DIAGNOSTIC 1 EACH STRIP VI SCH ×4 (06:33→20:46)
[2018-05-03] MEDS: CARVEDILOL 6.25 MG TABLET PO SCH ×2 (08:12→17:27)
[2018-05-03] MEDS: PANTOPRAZOLE SODIUM 40 MG TABLET.DR PO SCH (08:12)
[2018-05-03] MEDS: NIFEdipine XL 90 MG TABSR PO SCH (08:12)
[2018-05-03] MEDS: ASPIRIN 81 MG TAB.CHEW PO SCH (08:12)
[2018-05-03] MEDS: INSULIN REGULAR, HUMAN 300 UNIT/3 ML VIAL SQ PRN ×3 (08:16→20:47)
[2018-05-03 08:29] VITALS: BP 136/56
--- NOTE | 2018-05-03 09:53 | NUR ---
Received pt. in bed A/Ox3, responsive to verbal and tactile stimuli. Denies SOB and CP at this time. All due AM medications administered and tolerated well. No new skin condition noted. No s/sx of hypo/hyperglycemia, 0630 BS: 141 with coverage of 2 Units of Humalin R. Safety measures and fall precaution in placed. Call light and all frequently used items within pt. reach. Will continue to monitor accordingly.
--- NOTE | 2018-05-03 11:10 | NUR ---
Assumed care at this time, report received from Julius PISANO. Patient remains alert, verbally responsive, not in any form of acute distress. Patient just got back from shower. She denies any pain or discomfort at this time. Assisted with her needs. Call light and frequently used items placed within reach.
[2018-05-03 16:02] VITALS: BP 109/47
--- NOTE | 2018-05-03 18:58 | NUR ---
All due medications provided including insulin sliding scale as ordered and patient tolerated it. No complaints at this time. Family at bedside. Will endorse accordingly.
[2018-05-03 20:00] VITALS: BP 134/67
--- NOTE | 2018-05-03 20:07 | NUR ---
Patient received in bed , with family at bedside. Alert and oriented time 3. Tuvaluan speaking, but able to communicate basic needs. No acute distress or pain noted at this time. Assisted to bathroom using walker and 1 person assist. Call light and frequently used items within reach. Will continue to monitor.
[2018-05-03] MEDS: ATORVASTATIN 40 MG TABLET PO SCH (20:31)
[2018-05-03] MEDS: INSULIN GLARGINE,HUM 300 UNITS/3 ML CARTRIDGE SQ SCH (20:48)
[2018-05-04 05:30] VITALS: BP 145/54
[2018-05-04] MEDS: BLOOD SUGAR DIAGNOSTIC 1 EACH STRIP VI SCH ×2 (06:30→11:09)
--- NOTE | 2018-05-04 06:43 | NUR ---
End of Shift report: Patient slept comfortably throughout the night. No s//s symptoms of hypo/hyperglycemia at this time. All patient safety measures maintained. All needs attended to promptly. All due medications given-tolerated well. Call light and most used items within reach. Will continue monitor.
[2018-05-04 07:30] LABS: BASOPHILS % (AUTO) 0.3 % (0.0-2.0); EOSINOPHILS # (AUTO) 0.1 K/uL (0.0-0.7); EOSINOPHILS % (AUTO) 1.9 % (0.0-7.0); HEMATOCRIT 29.5 % (31.2-41.9); HEMOGLOBIN 10.5 g/dL (10.9-14.3); LYMPHOCYTES # (AUTO) 1.1 K/uL (20.0-40.0); LYMPHOCYTES % (AUTO) 20.5 % (20.5-51.5); MEAN CORPUSCULAR HEMOGLOBIN 31.2 uug (24.7-32.8); MEAN CORPUSCULAR HGB CONC 36 g/dL (32.3-35.6); MEAN CORPUSCULAR VOLUME 87.9 fL (75.5-95.3); MONOCYTES # (AUTO) 0.5 K/uL (2.0-10.0); MONOCYTES % (AUTO) 9.7 % (0.0-11.0); NEUTROPHILS # (AUTO) 3.5 K/uL (1.8-8.9); NEUTROPHILS % (AUTO) 67.6 % (38.5-71.5); PLATELET COUNT (AUTO) 233 K/uL (179-408); RED BLOOD CELL COUNT(AUTO) 3.35 MIL/uL (3.63-4.92); WHITE BLOOD COUNT (AUTO) 5.2 K/uL (3.8-11.8)
[2018-05-04 07:44] LABS: CARBON DIOXIDE 26 mmol/L (21-32); CHLORIDE 107 mmol/L (98-107); CREATININE 1.5 mg/dL (0.6-1.3); GLUCOSE 99 mg/dL (74-106); MAGNESIUM 1.7 mg/dL (1.8-2.4); PHOSPHOROUS 4.3 mg/dL (2.5-4.9); POTASSIUM 4.2 mmol/L (3.5-5.1); UREA NITROGEN, BLOOD 29 mg/dL (7-18)
[2018-05-04 08:00] VITALS: BP 162/69
[2018-05-04 08:23] VITALS: BP 162/69
[2018-05-04] MEDS: ASPIRIN 81 MG TAB.CHEW PO SCH (08:23)
[2018-05-04] MEDS: NIFEdipine XL 90 MG TABSR PO SCH (08:23)
[2018-05-04] MEDS: PANTOPRAZOLE SODIUM 40 MG TABLET.DR PO SCH (08:23)
[2018-05-04] MEDS: CARVEDILOL 6.25 MG TABLET PO SCH (08:23)
[2018-05-04] MEDS: INSULIN REGULAR, HUMAN 300 UNIT/3 ML VIAL SQ PRN ×2 (08:24→11:34)
--- NOTE | 2018-05-04 09:01 | NUR ---
Received pt. in bed A/Ox3, responsive to verbal and tactile stimuli. Denies SOB and CP at this time. All due AM medications administered and tolerated well. No new skin condition noted. No s/sx of hypo/hyperglycemia, 0630 BS: 85 with no coverage. Safety measures and fall precaution in placed. Call light and all frequently used items within pt. reach. Will continue to monitor accordingly.
[2018-05-04] MEDS ORDERED: MAGNESIUM OXIDE 400 MG TABLET PO ONE (11:15)
--- NOTE | 2018-05-04 15:38 | NUR ---
Discharge note: 1100 Grandson at bedside, pt. and R/P requested to discharge today. Informed Pt. and R/P of discharge process. Referred to CM for discharge instructions. Notified RUNNER ON Porfirio of pt. choice to d/c home today, RUNNER [employer] amenable and signed TMS. Obtained discharge order from Dr. Win @ 1210, amenable. Orders noted and carried out. Informed pt. and r/p that discharge orders was received, pt. thankful for services. Routine round with pt; pt. remain cooperative, A/OX4. Lungs sounds clear to auscultation bilaterally, no respiratory distress. Heart with regular rate and rhythm. Bowel sounds present in all 4 quadrants. Skin assessment completed, photos taken and placed in chart per protocol, no new skin condition noted, skin intact. RX faxed to [facility] per R/P request. 1500 Resident Grandson (Chio Lal) arrived on-site. All belongings are prepared. Personal belongings checked and all accountable for. Instructed resident and R/P to follow up with PCP. Grandson to make arrangement for f/u visit with PCP (Dr. Denisse Huerta). Pt. teaching provided which include but not limited to meds administration, risk of fall, and skin mgt. No further questions from the resident and R/P about the discharge instructions at this time and verbalized clear understanding. Discharge documents signed by resident and responsible green party. RX and discharge packet given to R/P. 1530 Assisted resident safely via W/C to pvt vehicle. Res. left the facility and d/c to home with home health to provide PT/OT/RN. made aware of resident discharge.
[2018-05-06] MEDS ORDERED: CLONIDINE-TTS 3 PATCH TD SCH (09:00)
== END 2018-05-04 15:30 | disposition home health service (06) | DRG 947 ==
PROVIDERS: ADMIT Physical Medicine & Rehabilitation Pain Medicine; ATTEND Physical Medicine & Rehabilitation Pain Medicine
DX: R53.81 Other malaise (principal); N17.0 Acute kidney failure with tubular necrosis; D68.59 Other primary thrombophilia; I69.354 Hemiplegia and hemiparesis following cerebral infarction affecting left non-dominant side; E44.0 Moderate protein-calorie malnutrition; I13.0 Hypertensive heart and chronic kidney disease with heart failure and stage 1 through stage 4 chronic kidney disease, or unspecified chronic kidney disease; E11.65 Type 2 diabetes mellitus with hyperglycemia; J44.9 Chronic obstructive pulmonary disease, unspecified; Z87.440 Personal history of urinary (tract) infections; E11.22 Type 2 diabetes mellitus with diabetic chronic kidney disease; M17.10 Unilateral primary osteoarthritis, unspecified knee; N18.9 Chronic kidney disease, unspecified; F01.50 Vascular dementia, unspecified severity, without behavioral disturbance, psychotic disturbance, mood disturbance, and anxiety; I50.9 Heart failure, unspecified; M19.90 Unspecified osteoarthritis, unspecified site; E78.5 Hyperlipidemia, unspecified; E66.9 Obesity, unspecified; Z68.28 Body mass index [BMI] 28.0-28.9, adult; Z88.8 Allergy status to other drugs, medicaments and biological substances
CPT/HCPCS: 36415; 83735; 84100; 85025; 92523; 92526; 92610; 97110; 97112; 97116; 97165; 97530; 97535; A9150; J1815